=== PATIENT | female | born 1945 | race Caucasian/White ===

== ENCOUNTER → 2017-04-30 | Outpatient (CLI) | payer MEDICARE, OTHER ==
--- NOTE | 2017-05-01 09:12 | PE ---
EXAMINATION TYPE: PET CT fusion skull to thigh DATE OF EXAM: 04/30/2017 COMPARISON: Chest x-ray 04/18/2017 Prior PET/CT: None HISTORY: Solitary pulmonary nodule TECHNIQUE: Following the intravenous administration of 8.9 mCi of F-18 FDG, whole body images are pe rformed from the skull base to the midthigh. Images are reviewed on the computer in the coronal, axi al, and sagittal planes. Reconstructed rotating images are created on independent workstation and re viewed on the computer. A localization and attenuation correction CT is performed in conjunction wi th the PET scan. DLP: 195.42 mGycm SCAN: Initial Blood glucose: 79 mg/dL Average Mediastinum SUV: 1.87 Average Liver SUV: 2.5 FINDINGS: NECK: No abnormal uptake THORAX: There is mild uptake along soft tissue thickening adjacent to the pericardial border along th e right heart border. PET image 97. This has an SUV value of 2.67 and can be within the neoplastic ra nge. Inflammatory changes could be considered. There is mild uptake in the region of the soft tissue density in the posterior lateral right lower lo be. This has an SUV value 1.45 is likely inflammatory. The nodular density within the left upper lung field has an SUV value of 0.48 may be an old granuloma . PET image 67. ABDOMEN: Liver is somewhat heterogenous difficult to evaluate. Obvious focal nodules are not identifi ed. PELVIS: No abnormal uptake. OSSEOUS STRUCTURES: No abnormal uptake LOCALIZATION CT: Some mucosal thickening is through the right maxillary sinus. The ascending thoracic aorta at the level the main pulmonary artery is 3.4 cm. The main pulmonary artery at the bifurcation is 2.6 cm. Coronary artery calcifications present. There is an area of increased density within the posterior lateral right lower lung field measuring a pproximately 1.4 x 4.1 cm in size. The area of increased density along the mediastinal border on lung windows appears to measure 2.9 x 1.6 cm in size. Pneumonitis changes within the left perihilar regio n. Nodule left upper lobe measuring 0.8 cm. Emphysematous changes are within the lung tomlinson. Left re nal superior pole cysts are present. Left hip prosthesis is present causing beam hardening artifact. COMPARISON: CT findings correspond to the chest x-ray findings. IMPRESSION: 1. Small focal area of increased uptake along the right mediastinal border pericardial border has inc reased SUV uptake of 2.67. Small focus of neoplastic process could be present at this level. This pot entially could be inflammatory. 2. The larger density identified at the right base on chest x-ray and CT findings has more intermedia te signal area is more likely inflammatory in nature. Low metabolic neoplastic process cannot be excl uded. 3. Nodule within the left upper lobe likely benign with a low SUV value.
== END ==
LOC: RADPETMAIN 09:43
PROVIDERS: ATTEND Internal Medicine Critical Care Medicine
DX: R91.1 Solitary pulmonary nodule (principal)
CPT/HCPCS: 78815; A9552

== ENCOUNTER → 2017-07-11 | Outpatient (CLI) | payer MEDICARE, OTHER ==
[2017-07-11 12:19] LABS: Blood Urea Nitrogen 13 mg/dL (7-17); Non-African American GFR(MDRD) >60 (>60 ml/min/1.73 sqM)
--- NOTE | 2017-07-11 13:31 | CT ---
EXAMINATION TYPE: CT chest w con DATE OF EXAM: 07/11/2017 COMPARISON: NONE HISTORY: Patient has no complaints at time of service. Follow up study for known lung mass. CT DLP: 155.3 mGycm Automated exposure control for dose reduction was used. CONTRAST: CT scan of the chest is performed with IV Contrast, patient injected with 100 mL of Omnipaque 300. FINDINGS: LUNGS: There are emphysematous changes within the lungs. Bandlike area of increased attenuation with associated air bronchograms present along the major fissure in the right upper lobe. Some interstitia l changes are present more inferiorly. No pleural or pericardial effusion. There is an indeterminate pulmonary nodule left upper lobe axial image 19 measuring 8 mm with some questionable internal calcif ication. This is a stable finding. MEDIASTINUM: There are no greater than 1 cm hilar or mediastinal l ymph nodes. There are coronary artery calcifications present. No pericardial effusion is seen. AORTA: No additional significant abnormality is seen. OTHER: Bilateral renal cysts are present. The liver shows low attenuation. IMPRESSION: Findings could possibly represent a pneumonia, correlate. Follow-up suggested. Possible granuloma left upper lobe.
== END | disposition home or self-care (01) ==
LOC: RADCTMAIN 11:41
PROVIDERS: ATTEND Internal Medicine Critical Care Medicine
DX: R91.8 Other nonspecific abnormal finding of lung field (principal)
CPT/HCPCS: 82565; 84520; 71260; 36415; Q9967

== ENCOUNTER → 2017-11-19 | Outpatient (CLI) | payer MEDICARE, OTHER | END | disposition home or self-care (01) | LOC: RADPETMAIN 11:15 | PROVIDERS: ATTEND Internal Medicine Critical Care Medicine ==

== ENCOUNTER → 2017-11-26 | Outpatient (CLI) | payer MEDICARE, OTHER ==
--- NOTE | 2017-11-26 19:33 | PE ---
EXAMINATION TYPE: PET CT fusion skull to thigh DATE OF EXAM: 11/26/2017 COMPARISON: Prior PET/CT April 30, 2017. CT chest July 11, 2017. HISTORY: Solitary pulmonary nodule TECHNIQUE: Following the intravenous administration of 13.75 mCi of F-18 FDG, whole body images are performed from the skull base to the midthigh. Images are reviewed on the computer in the coronal, a xial, and sagittal planes. Reconstructed rotating images are created on independent workstation and reviewed on the computer. A noncontrast CT is performed in conjunction with the PET scan. SCAN: Initial Scan ? (no treatment) FINDINGS: SKULL BASE AND NECK: No suspicious hypermetabolic uptake is seen. CHEST, MEDIASTINUM, AND HILAR REGION: No suspicious hypermetabolic uptake is seen. There is interval improvement but not complete resolution of masslike consolidation posterior aspect right upper lobe n ear axial image 77 without suspicious hypermetabolic uptake. There is stable hyperdense possibly calc ified 7 mm nodule left upper lobe axial image 71 without hypermetabolic uptake. There is stable right pericardial masslike consolidation measuring 2.0 x 1.2 cm axial image 99 without hypermetabolic upta ke. There are calcified right hilar lymph nodes redemonstrated. ABDOMEN AND PELVIS: No suspicious hypermetabolic uptake is seen. OSSEOUS STRUCTURES: No suspicious hypermetabolic uptake is seen. OTHER CT: There is moderate calcified plaque left carotid bulb and mild calcified plaque right caroti d bulb redemonstrated. There is background moderate emphysematous change with scattered areas of scarring and/or atelectasis . There is coronary artery calcification which is noted marker for coronary artery disease redemonstrat ed. There are several simple appearing cysts scattered throughout both kidneys. There is 4 mm nonobstruct ing calculus upper to mid pole level right kidney axial image 122. Metallic hardware from left hip arthroplasty is seen causing streak artifact limiting evaluation of p elvic structures. There is moderate to advanced joint space loss right hip. Osseous structures are de mineralized. There is facet arthropathy lower lumbar levels. There are prominent uncovertebral facet degenerative changes in the cervical spine. There is degenerative change in both shoulders. IMPRESSION: No progression of lung findings or new hypermetabolic uptake to suggest malignancy. Findi ngs favored postinflammatory in etiology.
== END | disposition home or self-care (01) ==
LOC: RADPETMAIN 09:49
PROVIDERS: ATTEND Internal Medicine Critical Care Medicine
DX: R91.1 Solitary pulmonary nodule (principal)
CPT/HCPCS: 78815; A9552

== ENCOUNTER → 2018-07-11 | Outpatient (CLI) | payer MEDICARE, OTHER ==
--- NOTE | 2018-07-11 11:01 | XR ---
EXAMINATION TYPE: XR chest 2V DATE OF EXAM: 07/11/2018 COMPARISON: Prior chest x-ray 07/28/2017 and nuclear medicine PET/CT 11/26/2017 HISTORY: COPD and shortness of breath TECHNIQUE: Frontal and lateral views of the chest are obtained. FINDINGS: Findings are similar to prior. There are areas of scarring, right middle lobe consolidatio n. Hyperinflation is compatible with underlying emphysema. No evident pneumothorax or pleural effusio n. Blunting the costophrenic angles is stable, probable pleural reaction at the right costophrenic an gle. Cardiomediastinal silhouette, pulmonary vascularity and mikhail are stable. The could be underlying pulmonary artery hypertension. Remodeling of the left humeral head is stable. Facet arthropathy mondragon ges are extensive in the cervical spine. IMPRESSION: Stable abnormal findings. Emphysema with scarring suspected..
== END | disposition home or self-care (01) ==
LOC: RADXRYALE 09:48
PROVIDERS: ATTEND Internal Medicine Critical Care Medicine
DX: R91.8 Other nonspecific abnormal finding of lung field (principal); J44.1 Chronic obstructive pulmonary disease with (acute) exacerbation
CPT/HCPCS: 71046

== ENCOUNTER 2018-07-26 21:16 | Emergency (ER) | payer MEDICARE, OTHER ==
[2018-07-26 21:32] VITALS: BP 109/49; PULSE 84; RESP 18; TEMP 98.3
[2018-07-26] MEDS ORDERED: TOPICAL SKIN ADHESIVE 1 EACH AMP TOPICAL ONE (22:09)
--- NOTE | 2018-07-26 22:11 | ED ---
Wound/Laceration HPI - General Source: patient Mode of arrival: wheelchair Limitations: no limitations <Lisa Tay - Last Filed: 07/27/18 04:37> <Sia Ricardo - Last Filed: 07/27/18 07:43> - General Chief Complaint: Wound/Laceration Stated Complaint: Leg laceration Time Seen by Provider: 07/26/18 21:47 - History of Present Illness Initial Comments: 72-year-old female patient presents to the emergency department today for evaluation of laceration to the left lower leg. Patient states she was sitting on the couch on a tennis ball for her dog, states that the dog came up and jumped up on her scratching her legs. She states that she did sustain a skin tear to the left lower leg. states that he did irrigate the wound and applied antibiotic ointment. Patient denies falling down or any other injuries. States that she did have a tetanus vaccine 2 months ago. Patient denies any headache, neck pain, back pain, chest pain, shortness of breath, dizziness, weakness, abdominal pain, nausea, vomiting, or difficulties with bowel movements or urination. (Lisa Tay) - Related Data Allergies Allergy/AdvReac Type Severity Reaction Status Date / Time acetaminophen Allergy Unknown Verified 07/26/18 21:35 [From Darvocet-N] alendronate sodium Allergy Unknown Verified 07/26/18 21:35 [From Fosamax] aspirin Allergy Unknown Verified 07/26/18 21:35 banana Allergy Unknown Verified 07/26/18 21:35 codeine Allergy Unknown Verified 07/26/18 21:35 erythromycin base Allergy Unknown Verified 07/26/18 21:35 hydrocodone Allergy Unknown Verified 07/26/18 21:35 hyoscyamine [From Levbid] Allergy Unknown Verified 07/26/18 21:35 latex Allergy Unknown Verified 07/26/18 21:35 milk Allergy Unknown Verified 07/26/18 21:35 nitrofurantoin Allergy Unknown Verified 07/26/18 21:35 [From Macrobid] piperacillin [From Zosyn] Allergy Unknown Verified 07/26/18 21:35 propoxyphene Allergy Unknown Verified 07/26/18 21:35 [From Darvocet-N] tazobactam [From Zosyn] Allergy Unknown Verified 07/26/18 21:35 tetanus immune globulin Allergy Unknown Verified 07/26/18 21:35 venlafaxine [From Effexor] Allergy Unknown Verified 07/26/18 21:35 milk protein Allergy Unknown Uncoded 07/26/18 21:35 Review of Systems ROS Other: All systems not noted in ROS Statement are negative. <Lisa Tay - Last Filed: 07/27/18 04:37> ROS Other: All systems not noted in ROS Statement are negative. <Sia Ricardo - Last Filed: 07/27/18 07:43> ROS Statement: Those systems with pertinent positive or pertinent negative responses have been documented in the HPI. Past Medical History Past Medical History: COPD, GERD/Reflux, Hyperlipidemia Additional Past Medical History / Comment(s): emphasyma, lupus, arthritis, bursisit, ocular hypertension, carpel tunnel, steroid induced diabetes, shingles , incontinence, angio neurotic edema History of Any Multi-Drug Resistant Organisms: None Reported Past Surgical History: Hysterectomy, Orthopedic Surgery, Tonsillectomy Past Psychological History: No Psychological Hx Reported Smoking Status: Former smoker Past Alcohol Use History: None Reported Past Drug Use History: None Reported <Lisa Tay - Last Filed: 07/27/18 04:37> General Exam Limitations: no limitations General appearance: alert, in no apparent distress, other (This is a well- developed, well-nourished elderly female patient in no acute distress. Vital signs upon presentation are temperature 98.3F, pulse 84, respirations 18, blood pressure 109/49, pulse ox 92% on room air.) Eye exam: Present: normal appearance, PERRL, EOMI. Absent: scleral icterus, conjunctival injection, periorbital swelling ENT exam: Present: normal exam, normal oropharynx, mucous membranes moist Respiratory exam: Present: normal lung sounds bilaterally. Absent: respiratory distress, wheezes, rales, rhonchi, stridor Cardiovascular Exam: Present: regular rate, normal rhythm, normal heart sounds. Absent: systolic murmur, diastolic murmur, rubs, gallop, clicks Extremities exam: Present: full ROM, normal capillary refill, other (Patient has stellate shaped skin tear to the left galeas. Bleeding is controlled. Skin is very thin and fragile.). Absent: normal inspection, tenderness, pedal edema , joint swelling, calf tenderness Neurological exam: Present: alert, oriented X3, CN II-XII intact Psychiatric exam: Present: normal affect, normal mood Skin exam: Present: warm, dry, intact, normal color. Absent: rash <Lisa Tay - Last Filed: 07/27/18 04:37> Vital Signs 07/26/18 21:25 Temperature 98.3 F Pulse Rate 84 Respiratory 18 Rate Blood Pressure 109/49 O2 Sat by Pulse 92 L Oximetry Medical Decision Making <Lisa Tay - Last Filed: 07/27/18 04:37> <Sia Ricardo - Last Filed: 07/27/18 07:43> - Medical Decision Making 72-year-old female patient presented to the emergency department today for evaluation of skin tear to the left galeas. Physical examination did reveal a stellate, flap -like skin tear to the left galeas. I did cleanse the skin tear. Did repair using Steri-Strips and accident. Patient is instructed to leave the Steri-Strips in place until follow-up. She is instructed to monitor for signs or symptoms of infection. Tetanus is up-to-date. She'll be discharged home to follow-up with her primary care physician for reevaluation of the wound and wanted to days. Return parameters were discussed in detail. They verbalize understanding and agree with this plan. (Lisa Tay) I personally saw and examined the patient. I reviewed and agree with the mid- level provider findings including all diagnostic interpretations and treatment plans as written unless otherwise stated. I was present for wilson portions of any procedures performed. (Sia Ricardo) Disposition Is patient prescribed a controlled substance at d/c from ED?: No Time of Disposition: 23:15 <Lisa Tay - Last Filed: 07/27/18 04:37> <Sia Ricardo - Last Filed: 07/27/18 07:43> Clinical Impression: Skin tear of left lower leg without complication Disposition: HOME SELF-CARE Condition: Good Instructions: Skin Tear (ED) Additional Instructions: Keep wound clean and dry. Allow Steri-Strips to follow-up on her own. Follow- up with your primary care physician for recheck of the wound in 1-2 days. Return here immediately for any new, worsening, or concerning symptoms. Referrals: Henrietta Hyatt MD [Primary Care Provider] - 1-2 days
== END 2018-07-26 23:25 | disposition home or self-care (01) ==
LOC: EC 21:16
DX: S81.812A Laceration without foreign body, left lower leg, initial encounter (principal); Z87.891 Personal history of nicotine dependence; Z88.6 Allergy status to analgesic agent; Z88.5 Allergy status to narcotic agent; Z88.1 Allergy status to other antibiotic agents; Z91.011 Allergy to milk products; Z91.040 Latex allergy status; Z88.7 Allergy status to serum and vaccine; Z88.8 Allergy status to other drugs, medicaments and biological substances; X58.XXXA Exposure to other specified factors, initial encounter; Y92.009 Unspecified place in unspecified non-institutional (private) residence as the place of occurrence of the external cause
CPT/HCPCS: 99282

== ENCOUNTER → 2019-09-17 | Outpatient (CLI) | payer MEDICARE, OTHER | END | disposition home or self-care (01) | LOC: CPPFTMAIN 11:16 | PROVIDERS: ATTEND Internal Medicine Critical Care Medicine | DX: J44.9 Chronic obstructive pulmonary disease, unspecified (principal); R94.2 Abnormal results of pulmonary function studies | CPT/HCPCS: 94060; 94726; 94729 ==

== ENCOUNTER → 2020-05-10 | Outpatient (CLI) | payer MEDICARE, OTHER ==
--- NOTE | 2020-05-10 14:05 | CT ---
EXAMINATION TYPE: CT pelvis wo con DATE OF EXAM: 05/10/2020 COMPARISON: None HISTORY: Low back and bilateral hip pain. Possible S3 fracture. CT DLP: 474.2 mGycm Automated exposure control for dose reduction was used. Unenhanced CT of the pelvis was performed. FINDINGS: Vague areas of sclerosis and lucency involving the sacrum bilaterally felt to reflect bilateral sacra l insufficiency fractures. No bony destructive process seen. Vacuum changes of the SI joints right gr eater than left. No evidence for presacral mass. Left hip prosthesis. Atrophic changes of the uterus. Focal uterine calcification. IMPRESSION: SACRAL INSUFFICIENCY FRACTURES NOTED.
== END | disposition home or self-care (01) ==
LOC: RADCTMAIN 12:09
PROVIDERS: ATTEND Physical Medicine & Rehabilitation
DX: S32.10XA Unspecified fracture of sacrum, initial encounter for closed fracture (principal); M47.817 Spondylosis without myelopathy or radiculopathy, lumbosacral region; M43.17 Spondylolisthesis, lumbosacral region; M51.36 Other intervertebral disc degeneration, lumbar region; M46.1 Sacroiliitis, not elsewhere classified
CPT/HCPCS: 72192

== ENCOUNTER → 2020-07-15 | Outpatient (CLI) | payer MEDICARE, OTHER ==
--- NOTE | 2020-07-15 15:08 | XR ---
PA chest x-ray with left RIBS HISTORY: Left rib pain, trauma Frontal view of the chest and 4 views of the left ribs submitted Marked arthropathy noted in the left shoulder. Aorta is dense. There are prominent lung volume suggesting underlying COPD. Bandlike area of increased attenuation in the left midlung likely reflects scarring as noted on prior. There is a contour abnormality present at the eighth rib laterally on the left, difficult to exclude a nondisplaced fracture. Ninth rib show s a small minimally displaced fracture on the oblique image. There is no pneumothorax or pleural effu tristen. Lucency beneath the hemidiaphragms thought likely related to bowel. IMPRESSION: Ninth rib fracture. Difficult to exclude nondisplaced eighth rib fracture. Bone scan coul d be performed for increased sensitivity as indicated.
== END | disposition home or self-care (01) ==
LOC: RADXRYALE 12:06
PROVIDERS: ATTEND Internal Medicine
DX: S22.32XA Fracture of one rib, left side, initial encounter for closed fracture (principal)

== ENCOUNTER 2020-07-18 13:20 | Inpatient (IN) | payer MEDICARE, OTHER ==
--- NOTE | 2020-07-18 14:08 | ED ---
Fall HPI - General Source: patient, family, EMS Mode of arrival: EMS <Shana Omalley - Last Filed: 07/18/20 18:22> <Robert Marie - Last Filed: 07/18/20 18:57> - General Chief Complaint: Fall Stated Complaint: Fall Time Seen by Provider: 07/18/20 13:42 - History of Present Illness Initial Comments: Patient is a 74-year-old female, with history of COPD on 2 L at home, presenting to the emergency department via EMS after having a fall. Patient states she was laying in bed and needed to use the restroom so she positioned her walker a gainst her dresser but then when she stood up she fell to the left. Patient states she did not hit her head, she did not lose consciousness. Patient states she had to lay there for approximately one hour until her came back home from the store. Patient's daughter is with here now and states that over the past few weeks she has had a few different falls. She is currently recovering from a nondisplaced left rib fracture as well as a sacral fracture from previous falls. She is currently on Bactrim, awaiting a urine culture for possible UTI. Patient's daughter states they do believe she might have mild dementia over the falls are new. She normally walks with a walker. She does admit to history of left hip surgery. She did admit to left hip pain right after the fall but states she is no longer having pain in her left ear. She denies any abdominal pain, nausea or vomiting. She denies any chest pains but does admit to left- sided rib pain. He denies any head or neck pain. She has no further complaints at this time. Upon arrival to the ER, vital signs are stable. (Shana Omalley) - Related Data Home Medications Medication Instructions Recorded Confirmed Acamprosate Calcium [Campral] 333 mg PO BID 07/18/20 07/18/20 Acetaminophen Tab [Tylenol] 325 mg PO Q6H PRN 07/18/20 07/18/20 Alendronate Sodium [Fosamax] 70 mg PO TH 07/18/20 07/18/20 Aspirin EC [Ecotrin Low Dose] 81 mg PO HS 07/18/20 07/18/20 Azelastine HCl 137 mcg EA NOSTRIL Q12H 07/18/20 07/18/20 Benzonatate [Tessalon Perles] 100 mg PO TID PRN 07/18/20 07/18/20 Calcitrate 950mg 950 mg PO HS 07/18/20 07/18/20 Cetirizine HCl 10 mg PO HS PRN 07/18/20 07/18/20 Desloratadine 5 mg PO DAILY PRN 07/18/20 07/18/20 Fexofenadine HCl [Jody Allergy] 180 mg PO DAILY PRN 07/18/20 07/18/20 Fluticasone/Salmeterol [Advair 1 puff INHALATION RT-BID 07/18/20 07/18/20 500-50 Diskus] Ipratropium-Albuterol Nebulize 3 ml INHALATION RT-QID PRN 07/18/20 07/18/20 [Duoneb 0.5 mg-3 mg/3 ml Soln] Levocetirizine Dihydrochloride 5 mg PO DAILY PRN 07/18/20 07/18/20 [Xyzal] Levothyroxine Sodium 25 mcg PO DAILY 07/18/20 07/18/20 Loperamide HCl [Imodium A-D] 4 mg PO TID PRN 07/18/20 07/18/20 Magnesium 450 - 500 mg PO HS PRN 07/18/20 07/18/20 Montelukast Sodium [Singulair] 10 mg PO HS 07/18/20 07/18/20 Multivit-Min/Iron/Folic/Lutein 1 tab PO HS 07/18/20 07/18/20 [Centrum Silver Women Tablet] [employer]-3 Fatty Acids [[employer]-3] 1,000 mg PO DAILY 07/18/20 07/18/20 Omeprazole 20 mg PO HS 07/18/20 07/18/20 Oxybutynin Chloride [Oxybutynin 10 mg PO HS 07/18/20 07/18/20 Chloride ER] Primidone [Mysoline] 250 mg PO TID@0900,1300,1700 07/18/20 07/18/20 Psyllium Husk 100% [Metamucil 6 gm PO TID PRN 07/18/20 07/18/20 Packet] Simvastatin [Zocor] 40 mg PO HS 07/18/20 07/18/20 Tiotropium 18 Mcg/Puff [Spiriva] 1 puff INHALATION RT-DAILY 07/18/20 07/18/20 clonazePAM [KlonoPIN] 0.5 mg PO BID 07/18/20 07/18/20 guaiFENesin [Mucinex] 600 mg PO BID PRN 07/18/20 07/18/20 traMADol HCL 50 mg PO BID 07/18/20 07/18/20 Allergies Allergy/AdvReac Type Severity Reaction Status Date / Time hyoscyamine [From Levbid] Allergy Severe Unknown Verified 07/18/20 17:35 acetaminophen Allergy Unknown Verified 07/18/20 17:09 [From Darvocet-N] alendronate sodium Allergy Rash & Verified 07/18/20 17:35 [From Fosamax] Hives from Generic =brand ok= aspirin Allergy High doses Verified 07/18/20 17:35 causes cramps and stomach tearing banana Allergy Unknown Verified 07/18/20 17:09 codeine Allergy Unknown Verified 07/18/20 17:09 erythromycin base Allergy Unknown Verified 07/18/20 17:09 hydrocodone Allergy Unknown Verified 07/18/20 17:09 latex Allergy Rash/Hives Verified 07/18/20 17:35 milk Allergy Unknown Verified 07/18/20 17:09 nitrofurantoin Allergy 'SCARRING Verified 07/18/20 17:35 [From Macrobid] IN LUNGS' piperacillin [From Zosyn] Allergy Unknown Verified 07/18/20 17:09 propoxyphene Allergy Unknown Verified 07/18/20 17:09 [From Darvocet-N] tazobactam [From Zosyn] Allergy Unknown Verified 07/18/20 17:09 tetanus immune globulin Allergy Swelling Verified 07/18/20 17:35 venlafaxine [From Effexor] Allergy Unknown Verified 07/18/20 17:09 milk protein Allergy Unknown Uncoded 07/18/20 17:09 Review of Systems ROS Other: All systems not noted in ROS Statement are negative. <Shana Omalley - Last Filed: 07/18/20 18:22> ROS Other: All systems not noted in ROS Statement are negative. <Robert Marie - Last Filed: 07/18/20 18:57> ROS Statement: Those systems with pertinent positive or pertinent negative responses have been documented in the HPI. Past Medical History Past Medical History: COPD, GERD/Reflux, Hyperlipidemia Additional Past Medical History / Comment(s): emphasyma, lupus, arthritis, bursisit, ocular hypertension, carpel tunnel, steroid induced diabetes, shingles, incontinence, angio neurotic edema History of Any Multi-Drug Resistant Organisms: None Reported Past Surgical History: Hysterectomy, Orthopedic Surgery, Tonsillectomy Past Psychological History: No Psychological Hx Reported Smoking Status: Former smoker Past Alcohol Use History: None Reported Past Drug Use History: None Reported <Shana Omalley - Last Filed: 07/18/20 18:22> General Exam Limitations: no limitations <Shana Omalley - Last Filed: 07/18/20 18:22> - General Exam Comments Initial Comments: GENERAL: Patient is well-developed and well-nourished. Patient is nontoxic and in no a cute distress. HEAD: Atraumatic, normocephalic. EYES: Pupils equal round and reactive to light, extraocular movements intact, sclera anicteric, conjunctiva are normal. Eyelids were unremarkable. ENT: TMs normal, nares patent, oropharynx clear without exudates. Moist mucous membranes. NECK: Patient did arrive in c-collar, after c-collar was cleared, normal cervical range of motion, no midline tenderness. Supple without lymphadenopathy or JVD. LUNGS: Unlabored respirations. Breath sounds clear to auscultation bilaterally and equal. No wheezes rales or rhonchi. Mild pain with palpation of the left ribs. HEART: Regular rate and rhythm without murmurs, rubs or gallops. ABDOMEN: Soft, nontender, normoactive bowel sounds. No guarding, no rebound. No masses appreciated. : Deferred MUSCULOSKELETAL: Patient does have decreased range of motion of the left upper extremity, pain with arm flexion. Normal extremities with adequate strength and normal range of motion, no pitting or edema. No clubbing or cyanosis. NEUROLOGICAL: Patient is alert and oriented x 3. Motor and sensory are also intact. Cranial nerves II through XII grossly intact. Symmetrical smile. Normal speech, normal gait. PSYCH: Normal mood, normal affect. SKIN: Warm, Dry, normal turgor, no rashes or lesions noted. (Shana Omalley) Course <Robert Marie - Last Filed: 07/18/20 18:57> Vital Signs 07/18/20 07/18/20 07/18/20 13:52 14:58 15:58 Temperature 96.7 F L Pulse Rate 77 80 80 Respiratory 17 18 18 Rate Blood Pressure 136/64 130/59 O2 Sat by Pulse 99 95 95 Oximetry 07/18/20 07/18/20 16:58 17:58 Temperature Pulse Rate 83 78 Respiratory 18 18 Rate Blood Pressure 123/55 O2 Sat by Pulse 95 95 Oximetry - Reevaluation(s) Reevaluation #1: 07/18/20 18:56 PA supervision: I proceeded [id number] evaluation the patient. Patient did have evidence of frequent falls and failure to thrive. She did have rib fractures on the left. I did discuss the case with Dr. Coreas. Patient be admitted to Dr. Garcia with Dr. Coreas on consult. I did review the CAT scan and report. (Robert Marie) Medical Decision Making - Lab Data Result diagrams: 07/18/20 14:09 07/18/20 14:09 <Shana Omalley - Last Filed: 07/18/20 18:22> - Lab Data Result diagrams: 07/18/20 14:09 07/18/20 14:09 <Robert Marie - Last Filed: 07/18/20 18:57> - Medical Decision Making Patient is a 74-year-old female presenting via EMS from her home after she fell earlier today. Patient's daughters here with her now states she has been having multiple falls over the past few weeks. The most recent one was 2 days ago and she does have a small ninth rib fracture. Patient denies losing consciousness or hitting her head. She fell mostly on her left side. She did arrive in a c- collar but denies any neck pain or headache. She is not on blood thinners. Computed tomography scan of the brain and C-spine showed no acute process. C- collar was removed, and full range of motion without pain. X-rays of the left side of the ribs as well as chest x-ray reveal displaced third, fourth, fifth rib fractures as well as seventh eighth and ninth. No pneumothorax seen at this time. Lab work also reveals a mild white count at 13.4,, urine did come back positive for nitrates, many WBC clumps. Patient was given some fluids, pain control. She has been resting comfortably in the ER. Patient will be admitted for multiple rib fractures and multiple falls. She also be treated for UTI. Patient will be given 2 g of Rocephin. Patient was accepted by Dr. Morataya. Dr. Medeiros is also on consult. Case discussed with Dr. Marie. (Shana Omalley) - Lab Data Lab Results 07/18/20 07/18/20 07/18/20 Range/Units 14:09 14:09 14:09 WBC 13.4 H (3.8-10.6) k/uL RBC 4.23 (3.80-5.40) m/uL Hgb 12.8 (11.4-16.0) gm/dL Hct 39.9 (34.0-46.0) % MCV 94.3 (80.0-100.0) fL MCH 30.3 (25.0-35.0) pg MCHC 32.2 (31.0-37.0) g/dL RDW 14.1 (11.5-15.5) % Plt Count 252 (150-450) k/uL Neutrophils % 89 % Lymphocytes % 5 % Monocytes % 3 % Eosinophils % 1 % Basophils % 0 % Neutrophils # 12.0 H (1.3-7.7) k/uL Lymphocytes # 0.7 L (1.0-4.8) k/uL Monocytes # 0.4 (0-1.0) k/uL Eosinophils # 0.2 (0-0.7) k/uL Basophils # 0.1 (0-0.2) k/uL PT 9.6 (9.0-12.0) sec INR 0.9 (<1.2) APTT 24.3 (22.0-30.0) sec Sodium 135 L (137-145) mmol/L Potassium 4.6 (3.5-5.1) mmol/L Chloride 99 (98-107) mmol/L Carbon Dioxide 31 H (22-30) mmol/L Anion Gap 5 mmol/L BUN 14 (7-17) mg/dL Creatinine 0.72 (0.52-1.04) mg/dL Est GFR (CKD-EPI)AfAm >90 (>60 ml/min/1.73 sqM) Est GFR (CKD-EPI)NonAf 85 (>60 ml/min/1.73 sqM) Glucose 178 H (74-99) mg/dL Calcium 8.5 (8.4-10.2) mg/dL Total Bilirubin 0.2 (0.2-1.3) mg/dL AST 26 (14-36) U/L ALT 13 (4-34) U/L Alkaline Phosphatase 127 H (38-126) U/L Total Protein 6.7 (6.3-8.2) g/dL Albumin 3.6 (3.5-5.0) g/dL Urine Color Urine Appearance (Clear) Urine pH (5.0-8.0) Ur Specific Floyd (1.001-1.035) Urine Protein (Negative) Urine Glucose (UA) (Negative) Urine Ketones (Negative) Urine Blood (Negative) Urine Nitrite (Negative) Urine Bilirubin (Negative) Urine Urobilinogen (<2.0) mg/dL Ur Leukocyte Esterase (Negative) Urine RBC (0-5) /hpf Urine WBC (0-5) /hpf Urine WBC Clumps (None) /hpf Urine Bacteria (None) /hpf Urine Mucus (None) /hpf / Range/Units 14:09 WBC (3.8-10.6) k/uL RBC (3.80-5.40) m/uL Hgb (11.4-16.0) gm/dL Hct (34.0-46.0) % MCV (80.0-100.0) fL MCH (25.0-35.0) pg MCHC (31.0-37.0) g/dL RDW (11.5-15.5) % Plt Count (150-450) k/uL Neutrophils % % Lymphocytes % % Monocytes % % Eosinophils % % Basophils % % Neutrophils # (1.3-7.7) k/uL Lymphocytes # (1.0-4.8) k/uL Monocytes # (0-1.0) k/uL Eosinophils # (0-0.7) k/uL Basophils # (0-0.2) k/uL PT (9.0-12.0) sec INR (<1.2) APTT (22.0-30.0) sec Sodium (137-145) mmol/L Potassium (3.5-5.1) mmol/L Chloride (98-107) mmol/L Carbon Dioxide (22-30) mmol/L Anion Gap mmol/L BUN (7-17) mg/dL Creatinine (0.52-1.04) mg/dL Est GFR (CKD-EPI)AfAm (>60 ml/min/1.73 sqM) Est GFR (CKD-EPI)NonAf (>60 ml/min/1.73 sqM) Glucose (74-99) mg/dL Calcium (8.4-10.2) mg/dL Total Bilirubin (0.2-1.3) mg/dL AST (14-36) U/L ALT (4-34) U/L Alkaline Phosphatase (38-126) U/L Total Protein (6.3-8.2) g/dL Albumin (3.5-5.0) g/dL Urine Color Yellow Urine Appearance Cloudy H (Clear) Urine pH 7.0 (5.0-8.0) Ur Specific Floyd 1.014 (1.001-1.035) Urine Protein Negative (Negative) Urine Glucose (UA) Negative (Negative) Urine Ketones Negative (Negative) Urine Blood Negative (Negative) Urine Nitrite Positive H (Negative) Urine Bilirubin Negative (Negative) Urine Urobilinogen <2.0 (<2.0) mg/dL Ur Leukocyte Esterase Large H (Negative) Urine RBC 2 (0-5) /hpf Urine WBC 126 H (0-5) /hpf Urine WBC Clumps Few H (None) /hpf Urine Bacteria Occasional H (None) /hpf Urine Mucus Rare H (None) /hpf - EKG Data EKG Comments: Normal sinus rhythm, normal ECG, no signs of acute ischemia. Ventricular rate 72, NJ 142, QT 398. (Shana Omalley) Disposition Decision Date: 07/18/20 Decision Time: 18:10 <Shana Omalley - Last Filed: 07/18/20 18:22> <Robert Marie - Last Filed: 07/18/20 18:57> Clinical Impression: Multiple falls, Multiple fractures of ribs of left side, UTI (urinary tract infection) Disposition: ADMITTED IP TO THIS [facility] Condition: Stable
[2020-07-18 14:19] LABS: Basophils # (A) 0.1 k/uL (0-0.2); Basophils % (A) 0 %; Eosinophils # (A) 0.2 k/uL (0-0.7); Eosinophils % (A) 1 %; HCT 39.9 % (34.0-46.0); HGB 12.8 gm/dL (11.4-16.0); Lymphocytes # (A) 0.7 k/uL (1.0-4.8); Lymphocytes % (A) 5 %; MCH 30.3 pg (25.0-35.0); MCHC 32.2 g/dL (31.0-37.0); MCV 94.3 fL (80.0-100.0); Mean Platelet Volume 7.6; Monocytes # (A) 0.4 k/uL (0-1.0); Monocytes % (A) 3 %; Neutrophils % (A) 89 %; Platelet Count 252 k/uL (150-450); RBC 4.23 m/uL (3.80-5.40); RDW 14.1 % (11.5-15.5); WBC 13.4 k/uL (3.8-10.6)
[2020-07-18 14:34] LABS: ALT 13 U/L (4-34); AST 26 U/L (14-36); African American GFR (CKD) >90 (>60 ml/min/1.73 sqM); Albumin 3.6 g/dL (3.5-5.0); Alkaline Phosphatase 127 U/L (38-126); Anion Gap 5 mmol/L; Blood Urea Nitrogen 14 mg/dL (7-17); Calcium 8.5 mg/dL (8.4-10.2); Carbon Dioxide 31 mmol/L (22-30); Chloride 99 mmol/L (98-107); Glucose 178 mg/dL (74-99); Non-African American GFR(CKD) 85 (>60 ml/min/1.73 sqM); Potassium 4.6 mmol/L (3.5-5.1); Sodium 135 mmol/L (137-145); Total Bilirubin 0.2 mg/dL (0.2-1.3); Total Protein 6.7 g/dL (6.3-8.2)
[2020-07-18 14:41] LABS: INR 0.9 (<1.2); Partial Thromboplastin Time 24.3 sec (22.0-30.0); Prothrombin Time 9.6 sec (9.0-12.0)
--- NOTE | 2020-07-18 14:47 | CT ---
EXAMINATION TYPE: CT brain cspine wo con DATE OF EXAM: 07/18/2020 COMPARISON: None HISTORY: Fall CT DLP: 1254.1 mGycm Automated exposure control for dose reduction was used. TECHNIQUE: CT scan of the head and cervical spine are performed without contrast. FINDINGS: There is no acute intracranial hemorrhage, mass effect, or midline shift identified. No e xtra-axial fluid collections. Prominent ventricles concordant with volume loss. Patchy periventricula r white matter hypodensities likely sequela of chronic microvascular ischemic change. No depressed o r displaced calvarial fracture. Globes are grossly symmetric. There is mucosal thickening of the righ t maxillary sinus. Mastoid air cells are clear. Cervical spine is visualized in its entirety from C1 through upper thoracic levels and demonstrates s atisfactory alignment without evidence of acute fracture or dislocation. Prevertebral soft tissue ap pears within normal limits. The C1-C2 articulation is unremarkable. Degenerative changes with no hi gh-grade canal stenosis. The bilateral lung apices demonstrate severe emphysematous change with saber -sheath trachea. There is debris within the esophagus. IMPRESSION: 1. There is no acute fracture or dislocation evident in the cervical spine. 2. No acute intracranial hemorrhage, mass effect, or midline shift is seen.
[2020-07-18] MEDS ORDERED: MORPHINE SULFATE 2 MG/ML SYRINGE IVP ONE (14:50)
--- NOTE | 2020-07-18 15:54 | XR ---
Chest x-ray with left RIBS HISTORY: Trauma, history of rib fracture, pain Frontal view of the chest and 4 views of left ribs correlated to prior chest x-ray 07/15/2020 No evident pneumothorax or pleural effusion. Patchy density in the left midlung may represent lung co ntusion, underlying scarring. There is been interval development of a dominate, displaced third rib f racture laterally, fourth rib fracture and fifth rib fracture not seen on prior exam. Seventh rib lat erally also shows a fracture with angulation. Eighth and ninth rib fractures are again noted. impression: Interval development of additional fractures as described
--- NOTE | 2020-07-18 15:56 | XR ---
Left humerus HISTORY: Trauma and pain Frontal and lateral views of left humerus on 4 images Marked arthropathy changes present in the left shoulder. Bone mineralization is reduced. No evident d islocation. 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 Sclerotic density present within the humeral head is indeter minate. IMPRESSION: No evidence of acute fracture
[2020-07-18 16:23] LABS: Appearance,Urine Cloudy (Clear); Bacteria,Urine Occasional /hpf; Bilirubin,Urine Negative (Negative); Blood,Urine Negative (Negative); Color,Urine Yellow; Glucose,Urine (UA) Negative (Negative); Ketones,Urine Negative (Negative); Leukocyte Esterase,Urine Large (Negative); Mucus,Urine Rare /hpf; Nitrite,Urine Positive (Negative); Protein,Urine Negative (Negative); RBC,Urine 2 /hpf (0-5); Specific Gravity,Urine 1.014 (1.001-1.035); Urobilinogen,Urine <2.0 mg/dL (<2.0); WBC,Urine 126 /hpf (0-5)
[2020-07-18] MEDS ORDERED: SODIUM CHLORIDE 0.9% 500 ML 500 ML IV STA (16:52)
[2020-07-18] MEDS ORDERED: ONDANSETRON 4 MG/2 ML VIAL IVP PRN (18:01)
[2020-07-18] MEDS ORDERED: NALOXONE 0.4 MG/ML 1 ML VIAL IV PRN (18:01)
[2020-07-18] MEDS: MORPHINE SULFATE 2 MG/ML SYRINGE IV PRN ×2 (18:45→23:01)
[2020-07-18] MEDS: SODIUM CHLORIDE 0.9% 1,000 ML IV SCH (18:45)
[2020-07-18] MEDS: CALCIUM CARBONATE 500 MG CHEWABLE PO PRN (23:01)
[2020-07-19] MEDS: traMADol 50 MG TAB PO PRN ×4 (03:11→22:05)
[2020-07-19] MEDS: MORPHINE SULFATE 2 MG/ML SYRINGE IV PRN ×3 (06:17→17:19)
[2020-07-19 06:35] LABS: Basophils % (A) 0 %; Eosinophils # (A) 0.2 k/uL (0-0.7); Eosinophils % (A) 2 %; HCT 37.9 % (34.0-46.0); HGB 11.8 gm/dL (11.4-16.0); Lymphocytes # (A) 0.9 k/uL (1.0-4.8); Lymphocytes % (A) 10 %; MCH 29.3 pg (25.0-35.0); MCHC 31.1 g/dL (31.0-37.0); MCV 94.2 fL (80.0-100.0); Mean Platelet Volume 7.6; Monocytes # (A) 0.7 k/uL (0-1.0); Monocytes % (A) 7 %; Neutrophils # (A) 7.6 k/uL (1.3-7.7); Neutrophils % (A) 81 %; Platelet Count 258 k/uL (150-450); RBC 4.03 m/uL (3.80-5.40); RDW 14.2 % (11.5-15.5); WBC 9.5 k/uL (3.8-10.6)
[2020-07-19 09:32] LABS: African American GFR (CKD) 105.5 (60.0-200.0); Albumin 3.6 g/dL (3.80-4.90); Albumin/Globulin Ratio 1.64 (1.60-3.17); Calcium 8.7 mg/dL (8.7-10.3); Globulin 2.2 g/dL (1.6-3.3); Non-African American GFR(CKD) 91.1 (60.0-200.0); Potassium 4.6 mmol/L (3.5-5.5); Total Bilirubin 0.2 mg/dL (0.2-1.2); Total Protein 5.8 g/dL (6.2-8.2)
[2020-07-19] MEDS ORDERED: BENZONATATE 100 MG CAP PO PRN (11:10)
[2020-07-19] MEDS ORDERED: LOPERAMIDE 2 MG CAP PO PRN (11:10)
[2020-07-19] MEDS ORDERED: ACETAMINOPHEN TAB 325 MG TAB PO PRN (11:10)
[2020-07-19 11:29] VITALS: BMI 18.9
[2020-07-19] MEDS ORDERED: clonazePAM 0.5 MG TAB PO PRN (12:36)
--- NOTE | 2020-07-19 13:21 | P.CNPUL ---
History of Present Illness Consult date: 07/19/20 Reason for consult: chest pain History of present illness: 74-year-old female patient, known history of COPD with chronic hypoxic respiratory failure at 2 L per minute nasal cannula, known history of chronic essential tremors and dementia. The patient has had multiple falls. While utilizing the restroom yesterday, the patient had another bout of fall and she landed on her left chest area. She did not have any head trauma. No loss of consciousness. This is related to her tremors in overall generalized weakness and debility. The patient was on the floor for approximately an hour and she waited for her to come and pick it up as the patient's was not at home at time of the fall. She has had a chest x-ray that showed nondisplaced left-sided drip fractures involving third fourth and fifth rib. She has had previous falls and she is recovered from a nondisplaced left-sided rib fracture and the sacral fracture related to a previous fall. She recently received Bactrim for a underlying UTI. No altered mentation. No headache. No neck stiffness. No swelling lower extremities. No swelling in the legs. No other complaints otherwise for now. X-ray of the humerus was done and showed no evidence of any fracture. CAT scan of the cervical spine and the head showed no evidence of any acute fracture or dislocation of the cervical spine and the patient and I have any acute intracranial hemorrhage or mass effect or midline shift. She is currently utilizing incentive spirometer. She continues to be on 2 L of oxygen by nasal cannula. She is on morphine sulfate 2 mg every 4 hours when necessary for pain control. She is also on aspirin 81 mg by mouth daily. Review of Systems Constitutional: Reports chronic pain, Reports fatigue, Reports weakness Eyes: bilateral decreased vision, denies blurred vision, denies bulging eye Ears: bilateral: decreased hearing, deny: ear discharge, earache, tinnitus Ears, nose, mouth and throat: Reports as per HPI Breasts: absent: as per HPI, change in shape, gynecomastia, masses, nipple discharge, pain, skin changes, swelling Cardiovascular: Reports chest pain, Reports decreased exercise tolerance, Report s dyspnea on exertion Respiratory: Reports dyspnea Gastrointestinal: Reports as per HPI Genitourinary: Reports as per HPI Menstruation: Reports as per HPI Musculoskeletal: Reports fractures, Reports frequent falls, Reports gait dysfunction, Reports muscle weakness Musculoskeletal: right: ankle stiffness, absent: ankle swelling Integumentary: Reports as per HPI Neurological: Reports gait dysfunction, Reports weakness Psychiatric: Reports as per HPI Endocrine: Reports as per HPI Hematologic/Lymphatic: Reports as per HPI Allergic/Immunologic: Reports as per HPI Past Medical History Past Medical History: COPD, GERD/Reflux, Hyperlipidemia, Memory Impairment Additional Past Medical History / Comment(s): emphysema, lupus, arthritis, bursitis, ocular hypertension, carpel tunnel, steroid induced diabetes, shingles, incontinence urine and bowel, angio neurotic edema History of Any Multi-Drug Resistant Organisms: None Reported Past Surgical History: Orthopedic Surgery, Tonsillectomy Additional Past Surgical History / Comment(s): left partial hip relacement Past Anesthesia/Blood Transfusion Reactions: No Reported Reaction Past Psychological History: No Psychological Hx Reported Smoking Status: Former smoker Past Alcohol Use History: None Reported Past Drug Use History: None Reported Medications and Allergies Home Medications Medication Instructions Recorded Confirmed Type Acamprosate Calcium [Campral] 333 mg PO BID 07/18/20 07/18/20 History Acetaminophen Tab [Tylenol] 325 mg PO Q6H PRN 07/18/20 07/18/20 History Alendronate Sodium [Fosamax] 70 mg PO TH 07/18/20 07/18/20 History Aspirin EC [Ecotrin Low Dose] 81 mg PO HS 07/18/20 07/18/20 History Azelastine HCl 137 mcg EA NOSTRIL Q12H 07/18/20 07/18/20 History Benzonatate [Tessalon Perles] 100 mg PO TID PRN 07/18/20 07/18/20 History Calcitrate 950mg 950 mg PO HS 07/18/20 07/18/20 History Cetirizine HCl 10 mg PO HS PRN 07/18/20 07/18/20 History Desloratadine 5 mg PO DAILY PRN 07/18/20 07/18/20 History Fexofenadine HCl [Jody Allergy] 180 mg PO DAILY PRN 07/18/20 07/18/20 History Fluticasone/Salmeterol [Advair 1 puff INHALATION RT-BID 07/18/20 07/18/20 History 500-50 Diskus] Ipratropium-Albuterol Nebulize 3 ml INHALATION RT-QID PRN 07/18/20 07/18/20 History [Duoneb 0.5 mg-3 mg/3 ml Soln] Levocetirizine Dihydrochloride 5 mg PO DAILY PRN 07/18/20 07/18/20 History [Xyzal] Levothyroxine Sodium 25 mcg PO DAILY 07/18/20 07/18/20 History Loperamide HCl [Imodium A-D] 4 mg PO TID PRN 07/18/20 07/18/20 History Magnesium 450 - 500 mg PO HS PRN 07/18/20 07/18/20 History Montelukast Sodium [Singulair] 10 mg PO HS 07/18/20 07/18/20 History Multivit-Min/Iron/Folic/Lutein 1 tab PO HS 07/18/20 07/18/20 History [Centrum Silver Women Tablet] [place]-3 Fatty Acids [[place]-3] 1,000 mg PO DAILY 07/18/20 07/18/20 History Omeprazole 20 mg PO HS 07/18/20 07/18/20 History Oxybutynin Chloride [Oxybutynin 10 mg PO HS 07/18/20 07/18/20 History Chloride ER] Primidone [Mysoline] 250 mg PO TID@0900,1300,1700 07/18/20 07/18/20 History Psyllium Husk 100% [Metamucil 6 gm PO TID PRN 07/18/20 07/18/20 History Packet] Simvastatin [Zocor] 40 mg PO HS 07/18/20 07/18/20 History Tiotropium 18 Mcg/Puff [Spiriva] 1 puff INHALATION RT-DAILY 07/18/20 07/18/20 H istory clonazePAM [KlonoPIN] 0.5 mg PO BID 07/18/20 07/18/20 History guaiFENesin [Mucinex] 600 mg PO BID PRN 07/18/20 07/18/20 History traMADol HCL 50 mg PO BID 07/18/20 07/18/20 History Allergies Allergy/AdvReac Type Severity Reaction Status Date / Time hyoscyamine [From Levbid] Allergy Severe Unknown Verified 07/18/20 17:35 acetaminophen Allergy Unknown Verified 07/18/20 17:09 [From Darvocet-N] alendronate sodium Allergy Rash & Verified 07/18/20 17:35 [From Fosamax] Hives from Generic =brand ok= aspirin Allergy High doses Verified 07/18/20 17:35 causes cramps and stomach tearing banana Allergy Unknown Verified 07/18/20 17:09 codeine Allergy Unknown Verified 07/18/20 17:09 erythromycin base Allergy Unknown Verified 07/18/20 17:09 hydrocodone Allergy Unknown Verified 07/18/20 17:09 latex Allergy Rash/Hives Verified 07/18/20 17:35 milk Allergy Unknown Verified 07/18/20 17:09 nitrofurantoin Allergy 'SCARRING Verified 07/18/20 17:35 [From Macrobid] IN LUNGS' piperacillin [From Zosyn] Allergy Unknown Verified 07/18/20 17:09 propoxyphene Allergy Unknown Verified 07/18/20 17:09 [From Darvocet-N] tazobactam [From Zosyn] Allergy Unknown Verified 07/18/20 17:09 tetanus immune globulin Allergy Swelling Verified 07/18/20 17:35 venlafaxine [From Effexor] Allergy Unknown Verified 07/18/20 17:09 milk protein Allergy Unknown Uncoded 07/18/20 17:09 Physical Exam Vitals: Vital Signs Temp Pulse Pulse Resp BP BP Pulse Ox 07/19/20 07:00 97.8 F 78 16 126/74 97 07/18/20 23:00 77 18 07/18/20 22:24 98.3 F 77 18 151/78 93 L 07/18/20 21:40 98.2 F 80 16 125/86 96 07/18/20 20:44 97.8 F 77 16 126/62 95 07/18/20 19:00 78 18 123/55 95 07/18/20 18:00 78 18 95 07/18/20 17:58 78 18 95 07/18/20 16:58 83 18 123/55 95 07/18/20 15:58 80 18 95 07/18/20 14:58 80 18 130/59 95 07/18/20 13:52 96.7 F L 77 17 136/64 99 Intake and Output 07/18/20 07/19/20 07/19/20 22:59 06:59 14:59 Other: Voiding Method Bedpan Bedpan Diaper Diaper # Voids 1 1 1 # Bowel Movements 1 Weight 48.534 kg 48.534 kg Gen. appearance, comfortable laying comfortably in bed. BMI is 19.0 Head exam was generally normal. There was no scleral icterus or corneal arcus. Mucous membranes were moist. Neck was supple and without jugular venous distension, thyromegaly, or carotid bruits. Carotids were easily palpable bilaterally. There was no adenopathy.The patient is edentulous Lungs sounds are diminished bilaterally and there is some soreness while palpating the left anterior lateral chest wall pain no obvious deformities. Cardiac exam revealed the PMI to be normally situated and sized. The rhythm was regular and no extrasystoles were noted during several minutes of auscultation. The first and second heart sounds were normal and physiologic splitting of the second heart sound was noted. There were no murmurs, rubs, clicks, or gallops. Abdominal exam revealed normal bowel sounds. The abdomen was soft, non-tender, and without masses, organomegaly, or appreciable enlargement of the abdominal aorta. Examination of the extremities revealed easily palpable radial, femoral and pedal pulses. There was no cyanosis, clubbing or edema. Examination of the skin revealed no evidence of significant rashes, suspicious appearing nevi or other concerning lesions. Neurologically the patient has essential tremors. She has muscle weakness all 4 extremities and this is global weakness. Gait was not assessed on today's evaluation. Results - Laboratory Findings CBC and BMP: 07/19/20 06:08 07/19/20 06:08 PT/INR, D-dimer PT 9.6 sec (9.0-12.0) 07/18/20 14:09 INR 0.9 (<1.2) 07/18/20 14:09 Abnormal lab findings: Abnormal Labs 07/18/20 07/18/20 07/18/20 14:09 14:09 14:09 WBC 13.4 H Neutrophils # 12.0 H Lymphocytes # 0.7 L Sodium 135 L Carbon Dioxide 31 H Glucose 178 H Alkaline Phosphatase 127 H Total Protein Albumin Urine Appearance Cloudy H Urine Nitrite Positive H Ur Leukocyte Esterase Large H Urine WBC 126 H Urine WBC Clumps Few H Urine Bacteria Occasional H Urine Mucus Rare H 07/19/20 07/19/20 06:08 06:08 WBC Neutrophils # Lymphocytes # 0.9 L Sodium Carbon Dioxide Glucose 118 H Alkaline Phosphatase Total Protein 5.8 L Albumin 3.60 L Urine Appearance Urine Nitrite Ur Leukocyte Esterase Urine WBC Urine WBC Clumps Urine Bacteria Urine Mucus - Diagnostic Findings Chest x-ray: image reviewed Assessment and Plan Plan: 1 traumatic left-sided rib fractures secondary to fall. The patient has a nondisplaced fracture involving the third fourth and fifth rib on the left 2 skeletal chest wall pain secondary to above 3 COPD with chronic hypoxic respiratory failure at 2 L per minute nasal cannula 4 history of essential tremors, quite extensive affecting mobility and gait 5 gait dysfunction the patient has had previous bouts of falls and currently utilizing a walker 6 hyperlipidemia 7 acid reflux 8hypothyroidism Plan continue morphine for pain control incentive spirometer Resume medications from home PTOT evaluation We'll continue to follow
[2020-07-19] MEDS: PRIMIDONE 250 MG TAB PO SCH ×2 (14:56→17:19)
[2020-07-19] MEDS: SODIUM CHLORIDE 0.9% 1,000 ML IV SCH (14:57)
--- NOTE | 2020-07-19 15:32 | P.HPIM ---
History of Present Illness 72-year-old [place] female had a fall mechanical fall because of generalized weakness patient has multiple falls recently found to have a fractures on the left side involving third fourth rib patient also has some old fractures in the left side from her previous falls patient denied any syncopal episode. Patient denied any fever chills. X-ray of the humerus did not show any fracture, computed tomography scan of the cervical spine is essentially within normal limits without any dislocation or fractures CT of the head did not show intracranial hemorrhage Review of Systems REVIEW OF SYSTEMS: CONSTITUTIONAL: No fever, no malaise, no fatigue. HEENT: No recent visual problems or hearing problems. Denied any sore throat. CARDIOVASCULAR: No orthopnea, PND, no palpitations, no syncope. PULMONARY: No shortness of breath, no cough, no hemoptysis. GASTROINTESTINAL: No diarrhea, no nausea, no vomiting, no abdominal pain. NEUROLOGICAL: No headaches, no weakness, no numbness. HEMATOLOGICAL: Denies any bleeding or petechiae. GENITOURINARY: Denies any burning micturition, frequency, or urgency. MUSCULOSKELETAL/RHEUMATOLOGICAL: Denies any joint pain, swelling, or any muscle pain. ENDOCRINE: Denies any polyuria or polydipsia. The rest of the 14-point review of systems is negative. Past Medical History Past Medical History: COPD, GERD/Reflux, Hyperlipidemia, Memory Impairment Additional Past Medical History / Comment(s): emphysema, lupus, arthritis, bursitis, ocular hypertension, carpel tunnel, steroid induced diabetes, shingles, incontinence urine and bowel, angio neurotic edema History of Any Multi-Drug Resistant Organisms: None Reported Past Surgical History: Orthopedic Surgery, Tonsillectomy Additional Past Surgical History / Comment(s): left partial hip relacement Past Anesthesia/Blood Transfusion Reactions: No Reported Reaction Past Psychological History: No Psychological Hx Reported Smoking Status: Former smoker Past Alcohol Use History: None Reported Past Drug Use History: None Reported Medications and Allergies Home Medications Medication Instructions Recorded Confirmed Type Acamprosate Calcium [Campral] 333 mg PO BID 07/18/20 07/18/20 History Acetaminophen Tab [Tylenol] 325 mg PO Q6H PRN 07/18/20 07/18/20 History Alendronate Sodium [Fosamax] 70 mg PO TH 07/18/20 07/18/20 History Aspirin EC [Ecotrin Low Dose] 81 mg PO HS 07/18/20 07/18/20 History Azelastine HCl 137 mcg EA NOSTRIL Q12H 07/18/20 07/18/20 History Benzonatate [Tessalon Perles] 100 mg PO TID PRN 07/18/20 07/18/20 History Calcitrate 950mg 950 mg PO HS 07/18/20 07/18/20 History Cetirizine HCl 10 mg PO HS PRN 07/18/20 07/18/20 History Desloratadine 5 mg PO DAILY PRN 07/18/20 07/18/20 History Fexofenadine HCl [Jody Allergy] 180 mg PO DAILY PRN 07/18/20 07/18/20 History Fluticasone/Salmeterol [Advair 1 puff INHALATION RT-BID 07/18/20 07/18/20 Histor y 500-50 Diskus] Ipratropium-Albuterol Nebulize 3 ml INHALATION RT-QID PRN 07/18/20 07/18/20 History [Duoneb 0.5 mg-3 mg/3 ml Soln] Levocetirizine Dihydrochloride 5 mg PO DAILY PRN 07/18/20 07/18/20 History [Xyzal] Levothyroxine Sodium 25 mcg PO DAILY 07/18/20 07/18/20 History Loperamide HCl [Imodium A-D] 4 mg PO TID PRN 07/18/20 07/18/20 History Magnesium 450 - 500 mg PO HS PRN 07/18/20 07/18/20 History Montelukast Sodium [Singulair] 10 mg PO HS 07/18/20 07/18/20 History Multivit-Min/Iron/Folic/Lutein 1 tab PO HS 07/18/20 07/18/20 History [Centrum Silver Women Tablet] [place]-3 Fatty Acids [[place]-3] 1,000 mg PO DAILY 07/18/20 07/18/20 History Omeprazole 20 mg PO HS 07/18/20 07/18/20 History Oxybutynin Chloride [Oxybutynin 10 mg PO HS 07/18/20 07/18/20 History Chloride ER] Primidone [Mysoline] 250 mg PO TID@0900,1300,1700 07/18/20 07/18/20 History Psyllium Husk 100% [Metamucil 6 gm PO TID PRN 07/18/20 07/18/20 History Packet] Simvastatin [Zocor] 40 mg PO HS 07/18/20 07/18/20 History Tiotropium 18 Mcg/Puff [Spiriva] 1 puff INHALATION RT-DAILY 07/18/20 07/18/20 History clonazePAM [KlonoPIN] 0.5 mg PO BID 07/18/20 07/18/20 History guaiFENesin [Mucinex] 600 mg PO BID PRN 07/18/20 07/18/20 History traMADol HCL 50 mg PO BID 07/18/20 07/18/20 History Allergies Allergy/AdvReac Type Severity Reaction Status Date / Time hyoscyamine [From Levbid] Allergy Severe Unknown Verified 07/18/20 17:35 acetaminophen Allergy Unknown Verified 07/18/20 17:09 [From Darvocet-N] alendronate sodium Allergy Rash & Verified 07/18/20 17:35 [From Fosamax] Hives from Generic =brand ok= aspirin Allergy High doses Verified 07/18/20 17:35 causes cramps and stomach tearing banana Allergy Unknown Verified 07/18/20 17:09 codeine Allergy Unknown Verified 07/18/20 17:09 erythromycin base Allergy Unknown Verified 07/18/20 17:09 hydrocodone Allergy Unknown Verified 07/18/20 17:09 latex Allergy Rash/Hives Verified 07/18/20 17:35 milk Allergy Unknown Verified 07/18/20 17:09 nitrofurantoin Allergy 'SCARRING Verified 07/18/20 17:35 [From Macrobid] IN LUNGS' piperacillin [From Zosyn] Allergy Unknown Verified 07/18/20 17:09 propoxyphene Allergy Unknown Verified 07/18/20 17:09 [From Darvocet-N] tazobactam [From Zosyn] Allergy Unknown Verified 07/18/20 17:09 tetanus immune globulin Allergy Swelling Verified 07/18/20 17:35 venlafaxine [From Effexor] Allergy Unknown Verified 07/18/20 17:09 milk protein Allergy Unknown Uncoded 07/18/20 17:09 Physical Exam Vitals: Vital Signs Temp Pulse Pulse Resp BP BP Pulse Ox 07/19/20 07:00 97.8 F 78 16 126/74 97 07/18/20 23:00 77 18 07/18/20 22:24 98.3 F 77 18 151/78 93 L 07/18/20 21:40 98.2 F 80 16 125/86 96 07/18/20 20:44 97.8 F 77 16 126/62 95 07/18/20 19:00 78 18 123/55 95 07/18/20 18:00 78 18 95 07/18/20 17:58 78 18 95 07/18/20 16:58 83 18 123/55 95 07/18/20 15:58 80 18 95 Intake and Output 07/19/20 07/19/20 07/19/20 06:59 14:59 22:59 Intake Total 480 Balance 480 Intake: IV 480 Sodium Chloride 0.9% 1, 480 000 ml @ 60 mls/hr IV . [id number] [facility] Rx#:[id number] Other: Voiding Method Bedpan Bedpan Bedpan Diaper Diaper Diaper # Voids 1 1 # Bowel Movements 1 Weight 48.534 kg PHYSICAL EXAMINATION: GENERAL: The patient is alert and oriented x3, not in any acute distress. Thin built elderly frail female HEENT: Pupils are round and equally reacting to light. EOMI. No scleral icterus. No conjunctival pallor. Normocephalic, atraumatic. No pharyngeal erythema. No thyromegaly. CARDIOVASCULAR: S1 and S2 present. No murmurs, rubs, or gallops. PULMONARY: Chest is clear to auscultation, no wheezing or crackles. ABDOMEN: Soft, nontender, nondistended, normoactive bowel sounds. No palpable organomegaly. MUSCULOSKELETAL: No joint swelling or deformity. EXTREMITIES: No cyanosis, clubbing, or pedal edema. NEUROLOGICAL: Gross neurological examination did not reveal any focal deficits. SKIN: No rashes. Results CBC & Chem 7: 07/19/20 06:08 07/19/20 06:08 Labs: Abnormal Lab Results - Last 24 Hours (Table) 07/18/20 07/19/20 07/19/20 Range/Units 14:09 06:08 06:08 Lymphocytes # 0.9 L (1.0-4.8) k/uL Glucose 118 H (70-110) mg/dL Total Protein 5.8 L (6.2-8.2) g/dL Albumin 3.60 L (3.80-4.90) g/dL Urine Appearance Cloudy H (Clear) Urine Nitrite Positive H (Negative) Ur Leukocyte Esterase Large H (Negative) Urine WBC 126 H (0-5) /hpf Urine WBC Clumps Few H (None) /hpf Urine Bacteria Occasional H (None) /hpf Urine Mucus Rare H (None) /hpf Microbiology - Last 24 Hours (Table) 07/18/20 14:09 Urine Culture - Preliminary Urine,Voided Thrombosis Risk Factor Assmnt - Choose All That Apply Any of the Below Risk Factors Present?: Yes Each Factor Represents 1 point: Abnormal pulmonary function (COPD) Other Risk Factors: No Other congenital or acquired thrombophilia - If yes, enter type in comment: No Thrombosis Risk Factor Assessment Total Risk Factor Score: 1 Thrombosis Risk Factor Assessment Level: Low Risk Assessment and Plan Plan: -Left-sided fractures traumatic: Supportive care will use antiemetics for pain and try to avoid opiates. Incentive spirometry -Chest pain seconded following [place] skeletal nature -COPD without any acute exacerbation at 10-multiple falls PT and OT evaluation -Hyperlipidemia -Gases. Reflux disease -Hypothyroidism For above-mentioned chronic cortical problems patient will be resumed on appropriate home medications
--- NOTE | 2020-07-19 16:28 | P.GSCN ---
History of Present Illness Consult date: 07/19/20 History of present illness: Patient presents after multiple falls from home due to unsteady gait. She reports tripping off floor rugs and then falling from the bathtub. She has restless leg syndrome for which she takes magnesiums. She has multiple rib fractures from her falls. CHEST: Tender along chest from rib fractures STUDIES: Reviewed PLAN: 1. Patient being seen from pulmonary. 2. Recommend incentive spirometer 3. May need home evaluation for fall risks. 4. No acute trauma surgical needs at this time. Past Medical History Past Medical History: COPD, GERD/Reflux, Hyperlipidemia, Memory Impairment Additional Past Medical History / Comment(s): emphysema, lupus, arthritis, bursitis, ocular hypertension, carpel tunnel, steroid induced diabetes, shingles, incontinence urine and bowel, angio neurotic edema History of Any Multi-Drug Resistant Organisms: None Reported Past Surgical History: Orthopedic Surgery, Tonsillectomy Additional Past Surgical History / Comment(s): left partial hip relacement Past Anesthesia/Blood Transfusion Reactions: No Reported Reaction Past Psychological History: No Psychological Hx Reported Smoking Status: Former smoker Past Alcohol Use History: None Reported Past Drug Use History: None Reported Medications and Allergies Home Medications Medication Instructions Recorded Confirmed Type Acamprosate Calcium [Campral] 333 mg PO BID 07/18/20 07/18/20 History Acetaminophen Tab [Tylenol] 325 mg PO Q6H PRN 07/18/20 07/18/20 History Alendronate Sodium [Fosamax] 70 mg PO TH 07/18/20 07/18/20 History Aspirin EC [Ecotrin Low Dose] 81 mg PO HS 07/18/20 07/18/20 History Azelastine HCl 137 mcg EA NOSTRIL Q12H 07/18/20 07/18/20 History Benzonatate [Tessalon Perles] 100 mg PO TID PRN 07/18/20 07/18/20 History Calcitrate 950mg 950 mg PO HS 07/18/20 07/18/20 History Cetirizine HCl 10 mg PO HS PRN 07/18/20 07/18/20 History Desloratadine 5 mg PO DAILY PRN 07/18/20 07/18/20 History Fexofenadine HCl [Jody Allergy] 180 mg PO DAILY PRN 07/18/20 07/18/20 History Fluticasone/Salmeterol [Advair 1 puff INHALATION RT-BID 07/18/20 07/18/20 History 500-50 Diskus] Ipratropium-Albuterol Nebulize 3 ml INHALATION RT-QID PRN 07/18/20 07/18/20 History [Duoneb 0.5 mg-3 mg/3 ml Soln] Levocetirizine Dihydrochloride 5 mg PO DAILY PRN 07/18/20 07/18/20 History [Xyzal] Levothyroxine Sodium 25 mcg PO DAILY 07/18/20 07/18/20 History Loperamide HCl [Imodium A-D] 4 mg PO TID PRN 07/18/20 07/18/20 History Magnesium 450 - 500 mg PO HS PRN 07/18/20 07/18/20 History Montelukast Sodium [Singulair] 10 mg PO HS 07/18/20 07/18/20 History Multivit-Min/Iron/Folic/Lutein 1 tab PO HS 07/18/20 07/18/20 History [Centrum Silver Women Tablet] [place]-3 Fatty Acids [[place]-3] 1,000 mg PO DAILY 07/18/20 07/18/20 History Omeprazole 20 mg PO HS 07/18/20 07/18/20 History Oxybutynin Chloride [Oxybutynin 10 mg PO HS 07/18/20 07/18/20 History Chloride ER] Primidone [Mysoline] 250 mg PO TID@0900,1300,1700 07/18/20 07/18/20 History Psyllium Husk 100% [Metamucil 6 gm PO TID PRN 07/18/20 07/18/20 History Packet] Simvastatin [Zocor] 40 mg PO HS 07/18/20 07/18/20 History Tiotropium 18 Mcg/Puff [Spiriva] 1 puff INHALATION RT-DAILY 07/18/20 07/18/20 History clonazePAM [KlonoPIN] 0.5 mg PO BID 07/18/20 07/18/20 History guaiFENesin [Mucinex] 600 mg PO BID PRN 07/18/20 07/18/20 History traMADol HCL 50 mg PO BID 07/18/20 07/18/20 History Allergies Allergy/AdvReac Type Severity Reaction Status Date / Time hyoscyamine [From Levbid] Allergy Severe Unknown Verified 07/18/20 17:35 acetaminophen Allergy Unknown Verified 07/18/20 17:09 [From Darvocet-N] alendronate sodium Allergy Rash & Verified 07/18/20 17:35 [From Fosamax] Hives from Generic =brand ok= aspirin Allergy High doses Verified 07/18/20 17:35 causes cramps and stomach tearing banana Allergy Unknown Verified 07/18/20 17:09 codeine Allergy Unknown Verified 07/18/20 17:09 erythromycin base Allergy Unknown Verified 07/18/20 17:09 hydrocodone Allergy Unknown Verified 07/18/20 17:09 latex Allergy Rash/Hives Verified 07/18/20 17:35 milk Allergy Unknown Verified 07/18/20 17:09 nitrofurantoin Allergy 'SCARRING Verified 07/18/20 17:35 [From Macrobid] IN LUNGS' piperacillin [From Zosyn] Allergy Unknown Verified 07/18/20 17:09 propoxyphene Allergy Unknown Verified 07/18/20 17:09 [From Darvocet-N] tazobactam [From Zosyn] Allergy Unknown Verified 07/18/20 17:09 tetanus immune globulin Allergy Swelling Verified 07/18/20 17:35 venlafaxine [From Effexor] Allergy Unknown Verified 07/18/20 17:09 milk protein Allergy Unknown Uncoded 07/18/20 17:09 Surgical - Exam Vital Signs Temp Pulse Resp BP Pulse Ox 96.7 F L 77 17 136/64 99 07/18/20 13:52 07/18/20 13:52 07/18/20 13:52 07/18/20 13:52 07/18/20 13:52 Results - Labs 07/19/20 06:08 07/19/20 06:08 Abnormal Lab Results - Last 24 Hours (Table) 07/18/20 07/19/20 07/19/20 Range/Units 14:09 06:08 06:08 Lymphocytes # 0.9 L (1.0-4.8) k/uL Glucose 118 H (70-110) mg/dL Total Protein 5.8 L (6.2-8.2) g/dL Albumin 3.60 L (3.80-4.90) g/dL Urine Appearance Cloudy H (Clear) Urine Nitrite Positive H (Negative) Ur Leukocyte Esterase Large H (Negative) Urine WBC 126 H (0-5) /hpf Urine WBC Clumps Few H (None) /hpf Urine Bacteria Occasional H (None) /hpf Urine Mucus Rare H (None) /hpf Microbiology - Last 24 Hours (Table) 07/18/20 14:09 Urine Culture - Preliminary Urine,Voided Diabetes panel 07/19/20 Range/Units 06:08 Sodium 136 (135-145) mmol/L Potassium 4.6 (3.5-5.5) mmol/L Chloride 102 (96-109) mmol/L Carbon Dioxide 29.0 (21.6-31.8) mmol/L BUN 9.0 (9.0-27.0) mg/dL Creatinine 0.6 (0.6-1.5) mg/dL Glucose 118 H (70-110) mg/dL Calcium 8.7 (8.7-10.3) mg/dL AST 30 (13-35) U/L ALT 15 (8-44) U/L Alkaline Phosphatase 125 (41-126) U/L Total Protein 5.8 L (6.2-8.2) g/dL Albumin 3.60 L (3.80-4.90) g/dL Calcium panel 07/19/20 Range/Units 06:08 Calcium 8.7 (8.7-10.3) mg/dL Albumin 3.60 L (3.80-4.90) g/dL Pituitary panel 07/19/20 Range/Units 06:08 Sodium 136 (135-145) mmol/L Potassium 4.6 (3.5-5.5) mmol/L Chloride 102 (96-109) mmol/L Carbon Dioxide 29.0 (21.6-31.8) mmol/L BUN 9.0 (9.0-27.0) mg/dL Creatinine 0.6 (0.6-1.5) mg/dL Glucose 118 H (70-110) mg/dL Calcium 8.7 (8.7-10.3) mg/dL Adrenal panel 07/19/20 Range/Units 06:08 Sodium 136 (135-145) mmol/L Potassium 4.6 (3.5-5.5) mmol/L Chloride 102 (96-109) mmol/L Carbon Dioxide 29.0 (21.6-31.8) mmol/L BUN 9.0 (9.0-27.0) mg/dL Creatinine 0.6 (0.6-1.5) mg/dL Glucose 118 H (70-110) mg/dL Calcium 8.7 (8.7-10.3) mg/dL Total Bilirubin 0.2 (0.2-1.2) mg/dL AST 30 (13-35) U/L ALT 15 (8-44) U/L Alkaline Phosphatase 125 (41-126) U/L Total Protein 5.8 L (6.2-8.2) g/dL Albumin 3.60 L (3.80-4.90) g/dL
[2020-07-19] MEDS: MAGNESIUM OXIDE 400 MG TAB PO SCH (17:19)
[2020-07-19] MEDS: CALCIUM CARBONATE 500 MG CHEWABLE PO PRN (18:16)
[2020-07-19] MEDS: KETOROLAC 15 MG/ML 1 ML VIAL IVP PRN (18:25)
[2020-07-19] MEDS ORDERED: SYMBICORT 160-4.5 MCG INHALER INHALATION SCH (20:00)
[2020-07-19] MEDS ORDERED: clonazePAM 0.5 MG TAB PO SCH (21:00)
[2020-07-19] MEDS: ASPIRIN 81 MG PO SCH (22:05)
[2020-07-19] MEDS: MULTIVITAMINS, THERA 1 EACH TAB PO SCH (22:06)
[2020-07-19] MEDS: ACAMPROSATE CALCIUM 333 MG TABLET.DR PO SCH (22:06)
[2020-07-19] MEDS: PANTOPRAZOLE 40 MG TABLET PO SCH (22:06)
[2020-07-19] MEDS: OXYBUTYNIN 10 MG TAB.ER.24 PO SCH (22:06)
[2020-07-19] MEDS: CALCITRATE 950 MG PO SCH (22:07)
[2020-07-20] MEDS: KETOROLAC 15 MG/ML 1 ML VIAL IVP PRN ×3 (03:20→16:21)
[2020-07-20] MEDS: LEVOTHYROXINE 25 MCG TAB PO SCH (03:21)
[2020-07-20] MEDS: SODIUM CHLORIDE 0.9% 1,000 ML IV SCH ×2 (05:13→21:20)
[2020-07-20] MEDS: traMADol 50 MG TAB PO PRN ×3 (05:50→16:21)
[2020-07-20] MEDS: MAGNESIUM OXIDE 400 MG TAB PO SCH (07:06)
[2020-07-20] MEDS: ACAMPROSATE CALCIUM 333 MG TABLET.DR PO SCH ×2 (07:07→21:19)
[2020-07-20] MEDS: PRIMIDONE 250 MG TAB PO SCH ×3 (07:07→16:21)
--- NOTE | 2020-07-20 12:09 | P.PN ---
Subjective 72-year-old pleasant female had a fall mechanical fall because of generalized weakness patient has multiple falls recently found to have a fractures on the left side involving third fourth rib patient also has some old fractures in the left side from her previous falls patient denied any syncopal episode. Patient denied any fever chills. X-ray of the humerus did not show any fracture, computed tomography scan of the cervical spine is essentially within normal limits without any dislocation or fractures CT of the head did not show intracranial hemorrhage. 05/19/2020 Patient pain is fairly well-controlled with the Toradol. Still complaining of pain in the chest area Constitutional: Denied any fatigue denied any fever. Cardio vascular: talbot mentioned in HPI Gastrointestinal denied any nausea vomiting Pulmonary: Denied any shortness of breath cough Neurologic denied any new focal deficits All inpatient medications were reviewed and appropriate changes in these medications as dictated in the interval history and assessment and plan. Objective - Vital Signs Vital signs: Vital Signs Temp 97.8 F 07/20/20 07:00 Pulse 82 07/20/20 07:00 Resp 18 07/20/20 07:30 BP 128/56 07/20/20 07:00 Pulse Ox 95 07/20/20 07:44 Intake & Output 07/19/20 07/20/20 07/20/20 18:59 06:59 18:59 Intake Total 480 Output Total 525 Balance 480 -525 Weight 48.534 kg Intake: IV 480 Sodium Chloride 0.9% 1, 480 000 ml @ 60 mls/hr IV . [id number] [facility] Rx#:[id number] Output: Urine 525 Other: Voiding Method Bedpan Diaper Diaper Diaper # Voids 1 - Exam PHYSICAL EXAMINATION: GENERAL: The patient is alert and oriented x3, not in any acute distress. Thin built elderly frail female HEENT: Pupils are round and equally reacting to light. EOMI. No scleral icterus. No conjunctival pallor. Normocephalic, atraumatic. No pharyngeal erythema. No thyromegaly. CARDIOVASCULAR: S1 and S2 present. No murmurs, rubs, or gallops. PULMONARY: Chest is clear to auscultation, no wheezing or crackles. ABDOMEN: Soft, nontender, nondistended, normoactive bowel sounds. No palpable organomegaly. MUSCULOSKELETAL: No joint swelling or deformity. EXTREMITIES: No cyanosis, clubbing, or pedal edema. NEUROLOGICAL: Gross neurological examination did not reveal any focal deficits. SKIN: No rashes. - Labs CBC & Chem 7: 07/19/20 06:08 07/19/20 06:08 Labs: Microbiology - Last 24 Hours (Table) 07/18/20 14:09 Urine Culture - Preliminary Urine,Voided Gram Neg Bacilli Assessment and Plan Plan: -Left-sided fractures traumatic: Supportive care will use antiemetics for pain and try to avoid opiates. Incentive spirometry -Chest pain seconded following [place] skeletal nature -COPD without any acute exacerbation at 10-multiple falls PT and OT evaluation -Hyperlipidemia -Gases. Reflux disease -Hypothyroidism For above-mentioned chronic cortical problems patient will be resumed on appropriate home medications
--- NOTE | 2020-07-20 12:24 | P.PN ---
Subjective Progress Note Date: 07/20/20 Principal diagnosis: Trauma with left-sided rib fractures secondary to fall 74-year-old female patient, known history of COPD with chronic hypoxic respiratory failure at 2 L per minute nasal cannula, known history of chronic essential tremors and dementia. The patient has had multiple falls. While utilizing the restroom yesterday, the patient had another bout of fall and she landed on her left chest area. She did not have any head trauma. No loss of consciousness. This is related to her tremors in overall generalized weakness and debility. The patient was on the floor for approximately an hour and she waited for her to come and pick it up as the patient's was not at home at time of the fall. She has had a chest x-ray that showed nondisplaced left-sided drip fractures involving third fourth and fifth rib. She has had previous falls and she is recovered from a nondisplaced left-sided rib fracture and the sacral fracture related to a previous fall. She recently received Bactrim for a underlying UTI. No altered mentation. No headache. No neck stiffness. No swelling lower extremities. No swelling in the legs. No other complaints otherwise for now. X-ray of the humerus was done and showed no evidence of any fracture. CAT scan of the cervical spine and the head showed no evidence of any acute fracture or dislocation of the cervical spine and the patient and I have any acute intracranial hemorrhage or mass effect or midline shift. She is currently utilizing incentive spirometer. She continues to be on 2 L of oxygen by nasal cannula. She is on morphine sulfate 2 mg every 4 hours when necessary for pain control. She is also on aspirin 81 mg by mouth daily. The patient is seen today 07/20/2020 in follow-up on the regular medical floor. He is currently resting more comfortably in bed. Awake and alert in no acute distress. Maintaining good O2 saturations in the mid 90s on 2 L/m per nasal cannula. No worsening shortness of breath, cough or congestion. She is pulling approximately 750 ML's on the incentive spirometer. She is afebrile. Hemodynamically stable. Pain is better controlled today. She remains on Symbi april, DuoNeb inhalations, Tessalon Perles, Urine culture is positive for gram- negative bacilli. Currently on ceftriaxone. Objective - Vital Signs Vital signs: Vital Signs Temp 97.8 F 07/20/20 07:00 Pulse 82 07/20/20 07:00 Resp 18 07/20/20 07:30 BP 128/56 07/20/20 07:00 Pulse Ox 95 07/20/20 07:44 Intake & Output 07/19/20 07/20/20 07/20/20 18:59 06:59 18:59 Intake Total 480 Output Total 525 Balance 480 -525 Weight 48.534 kg Intake: IV 480 Sodium Chloride 0.9% 1, 480 000 ml @ 60 mls/hr IV . [id number] [facility] Rx#:[id number] Output: Urine 525 Other: Voiding Method Bedpan Diaper Diaper Diaper # Voids 1 - Exam Gen. appearance, alert, pleasant 74-year-old female patient, comfortable laying comfortably in bed. O2 saturations in the mid 90s on 2 L/m per nasal cannula BMI is 19.0 Head exam was generally normal. There was no scleral icterus or corneal arcus. Mucous membranes were moist. Neck was supple and without jugular venous distension, thyromegaly, or carotid bruits. Carotids were easily palpable bilaterally. There was no adenopathy.The patient is edentulous Lungs sounds are diminished bilaterally and there is some soreness while palpating the left anterior lateral chest wall pain no obvious deformities. Cardiac exam revealed the PMI to be normally situated and sized. The rhythm was regular and no extrasystoles were noted during several minutes of auscultation. The first and second heart sounds were normal and physiologic splitting of the second heart sound was noted. There were no murmurs, rubs, clicks, or gallops. Abdominal exam revealed normal bowel sounds. The abdomen was soft, non-tender, and without masses, organomegaly, or appreciable enlargement of the abdominal aorta. Examination of the extremities revealed easily palpable radial, femoral and pedal pulses. There was no cyanosis, clubbing or edema. Examination of the skin revealed no evidence of significant rashes, suspicious appearing nevi or other concerning lesions. Neurologically the patient has essential tremors. She has muscle weakness all 4 extremities and this is global weakness. Gait was not assessed on today's evaluation. - Labs CBC & Chem 7: 07/19/20 06:08 07/19/20 06:08 Labs: Microbiology - Last 24 Hours (Table) 07/18/20 14:09 Urine Culture - Preliminary Urine,Voided Gram Neg Bacilli Assessment and Plan Assessment: 1 traumatic left-sided rib fractures secondary to fall. The patient has a nondisplaced fracture involving the third fourth and fifth rib on the left 2 skeletal chest wall pain secondary to above 3 COPD with chronic hypoxic respiratory failure at 2 L per minute nasal cannula 4 history of essential tremors, quite extensive affecting mobility and gait 5 gait dysfunction the patient has had previous bouts of falls and currently utilizing a walker 6 hyperlipidemia 7 acid reflux 8 hypothyroidism Plan The patient was seen and evaluated by Dr. Jama She is improved today compared to yesterday Encouraged increased use of the incentive spirometer Repeat chest x-ray in the a.m. Increase her activity as tolerated Titrate down the FiO2 as tolerated We'll continue to follow I, the cosigning physician, performed a history & physical examination of the patient. Lungs sounds are clear, diminished. Maintaining good O2 saturations in the 90s on 2 L/m nasal cannula. I discussed the assessment and plan of care with my nurse practitioner, Gladys Ramos. I attest to the above note as dictated by her.
--- NOTE | 2020-07-20 13:19 | P.PN ---
Subjective Progress Note Date: 07/20/20 Patient reports some improvement of left chest wall pain. She has intentional and resting tremors of the hand. She reports seeing a specialist/neurologist for her condition that helps but she has global pain. She is resting in bed. CHEST: Left chest wall pain NEURO: Intentional and resting tremors of the hands with ulnar deviation PLAN: 1. May benefit from neurology consultation for movement disorder and adjustment of medications 2. Pain management for ribs 3. Incentive spirometer 4. PT/OT assessment 5. Trauma surgery signing off. Objective - Vital Signs Vital signs: Vital Signs Temp 97.8 F 07/20/20 07:00 Pulse 82 07/20/20 07:00 Resp 18 07/20/20 07:30 BP 128/56 07/20/20 07:00 Pulse Ox 95 07/20/20 07:44 Intake & Output 07/19/20 07/20/20 07/20/20 18:59 06:59 18:59 Intake Total 480 Output Total 525 Balance 480 -525 Weight 48.534 kg Intake: IV 480 Sodium Chloride 0.9% 1, 480 000 ml @ 60 mls/hr IV . [id number] [facility] Rx#:[id number] Output: Urine 525 Other: Voiding Method Bedpan Diaper Diaper Diaper # Voids 1 - Labs CBC & Chem 7: 07/19/20 06:08 07/19/20 06:08 Labs: Microbiology - Last 24 Hours (Table) 07/18/20 14:09 Urine Culture - Preliminary Urine,Voided Gram Neg Bacilli
[2020-07-20] MEDS: ASPIRIN 81 MG PO SCH (21:19)
[2020-07-20] MEDS: PANTOPRAZOLE 40 MG TABLET PO SCH (21:19)
[2020-07-20] MEDS: MULTIVITAMINS, THERA 1 EACH TAB PO SCH (21:19)
[2020-07-20] MEDS: CALCITRATE 950 MG PO SCH (21:19)
[2020-07-20] MEDS: OXYBUTYNIN 10 MG TAB.ER.24 PO SCH (21:33)
[2020-07-21] MEDS: traMADol 50 MG TAB PO PRN ×4 (00:38→18:08)
[2020-07-21] MEDS: KETOROLAC 15 MG/ML 1 ML VIAL IVP PRN ×3 (00:38→11:11)
[2020-07-21 05:00] LABS: HCT 36.6 % (34.0-46.0); HGB 11.6 gm/dL (11.4-16.0); MCH 29.9 pg (25.0-35.0); MCHC 31.7 g/dL (31.0-37.0); MCV 94.3 fL (80.0-100.0); Mean Platelet Volume 7.3; Platelet Count 260 k/uL (150-450); RBC 3.88 m/uL (3.80-5.40); RDW 14.6 % (11.5-15.5); WBC 8.4 k/uL (3.8-10.6)
[2020-07-21] MEDS: LEVOTHYROXINE 25 MCG TAB PO SCH (05:58)
[2020-07-21] MEDS: PRIMIDONE 250 MG TAB PO SCH ×3 (08:39→17:30)
[2020-07-21] MEDS: ACAMPROSATE CALCIUM 333 MG TABLET.DR PO SCH (08:39)
[2020-07-21] MEDS: IPRATROPIUM-ALBUTEROL 3 ML NEB INHALATION PRN ×3 (09:07→16:50)
[2020-07-21 10:13] LABS: African American GFR (CKD) 120.6 (60.0-200.0); Anion Gap 4.6 mmol/L (4.00-12.00); Calcium 8.1 mg/dL (8.7-10.3); Carbon Dioxide 30.4 mmol/L (21.6-31.8); Non-African American GFR(CKD) 104.1 (60.0-200.0); Potassium 4.3 mmol/L (3.5-5.5)
--- NOTE | 2020-07-21 12:11 | P.PN ---
Subjective Progress Note Date: 07/21/20 Principal diagnosis: Trauma, with left-sided rib fracture secondary to fall 74-year-old female patient, known history of COPD with chronic hypoxic respiratory failure at 2 L per minute nasal cannula, known history of chronic essential tremors and dementia. The patient has had multiple falls. While utilizing the restroom yesterday, the patient had another bout of fall and she landed on her left chest area. She did not have any head trauma. No loss of consciousness. This is related to her tremors in overall generalized weakness and debility. The patient was on the floor for approximately an hour and she waited for her to come and pick it up as the patient's was not at home at time of the fall. She has had a chest x-ray that showed nondisplaced left-sided drip fractures involving third fourth and fifth rib. She has had previous falls and she is recovered from a nondisplaced left-sided rib fracture and the sacral fracture related to a previous fall. She recently received Bactrim for a underlying UTI. No altered mentation. No headache. No neck stiffness. No swelling lower extremities. No swelling in the legs. No other complaints otherwise for now. X-ray of the humerus was done and showed no evidence of any fracture. CAT scan of the cervical spine and the head showed no evidence of any acute fracture or dislocation of the cervical spine and the patient and I have any acute intracranial hemorrhage or mass effect or midline shift. She is currently utilizing incentive spirometer. She continues to be on 2 L of oxygen by nasal cannula. She is on morphine sulfate 2 mg every 4 hours when necessary for pain control. She is also on aspirin 81 mg by mouth daily. The patient is seen today 07/20/2020 in follow-up on the regular medical floor. He is currently resting more comfortably in bed. Awake and alert in no acute distress. Maintaining good O2 saturations in the mid 90s on 2 L/m per nasal cannula. No worsening shortness of breath, cough or congestion. She is pulling approximately 750 ML's on the incentive spirometer. She is afebrile. Hemodynamically stable. Pain is better controlled today. She remains on Symbi april, DuoNeb inhalations, Tessalon Perles, Urine culture is positive for gram- negative bacilli. Currently on ceftriaxone. On 07/21/2020 patient seen in follow-up on the regular medical floor. Doing, she sitting up in the chair, she denies any acute distress, she is currently on 2 L of oxygen and her pulse oximetry is between 94-97%, she's been afebrile, she is working on incentive spirometer, no new chest x-ray today, no worsening dyspnea. Her pain seems to be reasonably controlled. Today's labs have been reviewed, white blood cell is 8.4, hemoglobin is 11.6, lites are within normal limits, and BUN was 6, creatinine 0.4. Her urinalysis chest the presence of urinary tract infection, and urine culture was positive for Klebsiella pneumonia, patient is currently on ceftriaxone. She has been afebrile. Lung sounds are clear. Objective - Vital Signs Vital signs: Vital Signs Temp 98.3 F 07/21/20 07:00 Pulse 88 07/21/20 09:21 Resp 18 07/21/20 08:00 BP 145/55 07/21/20 07:00 Pulse Ox 94 L 07/21/20 07:00 Intake & Output 07/20/20 07/21/20 07/21/20 18:59 06:59 18:59 Intake Total 540 Output Total 650 600 Balance -110 -600 Intake: Oral 540 Output: Urine 650 600 Other: Voiding Method Diaper Diaper Diaper # Bowel Movements 1 - Exam GENERAL EXAM: Alert, very pleasant, 74-year-old frail looking white female, si tting up in the recliner, on 2 L of oxygen and the pulse ox 94% comfortable in no apparent distress. HEAD: Normocephalic/atraumatic. EYES: Normal reaction of pupils, equal size. Conjunctiva pink, sclera white. NOSE: Clear with pink turbinates. THROAT: No erythema or exudates. NECK: No masses, no JVD, no thyroid enlargement, no adenopathy. CHEST: No chest wall deformity. Symmetrical expansion. LUNGS: Equal air entry with no crackles, wheeze, rhonchi or dullness. CVS: Regular rate and rhythm, normal S1 and S2, no gallops, no murmurs, no rubs ABDOMEN: Soft, nontender. No hepatosplenomegaly, normal bowel sounds, no guarding or rigidity. EXTREMITIES: No clubbing, no edema, no cyanosis, 2+ pulses and upper and lower extremities. MUSCULOSKELETAL: Muscle strength and tone normal. SPINE: No scoliosis or deformity SKIN: No rashes CENTRAL NERVOUS SYSTEM: Alert and oriented -3. No focal deficits, tone is normal in all 4 extremities. PSYCHIATRIC: Alert and oriented -3. Appropriate affect. Intact judgment and insight. - Labs CBC & Chem 7: 07/21/20 04:26 07/21/20 04:26 Labs: Abnormal Lab Results - Last 24 Hours (Table) 07/21/20 Range/Units 04:26 BUN 6.0 L (9.0-27.0) mg/dL Creatinine 0.4 L (0.6-1.5) mg/dL Calcium 8.1 L (8.7-10.3) mg/dL Microbiology - Last 24 Hours (Table) 07/18/20 14:09 Urine Culture - Final Urine,Voided Klebsiella pneumoniae Assessment and Plan Plan: Assessment: 1 traumatic left-sided rib fractures secondary to fall. The patient has a nondisplaced fracture involving the third fourth and fifth rib on the left 2 skeletal chest wall pain secondary to above 3 COPD with chronic hypoxic respiratory failure at 2 L per minute nasal cannula 4 history of essential tremors, quite extensive affecting mobility and gait 5 gait dysfunction the patient has had previous bouts of falls and currently utilizing a walker 6 hyperlipidemia 7 acid reflux 8 hypothyroidism 9 Klebsiella pneumonia urinary tract infection, currently on Rocephin Plan: Patient is clinically stable, maintain pain control, encourage deep breathing and coughing, incentive spirometry use, no acute events overnight. Repeat chest x-ray is pending, increase activity as tolerated, patient has been started on antibiotics for evidence of urinary tract infection. No worsening dyspnea, she is working on her incentive spirometer. We'll continue to follow I performed a history & physical examination of the patient and discussed their management with my nurse practitioner, Marylin Goodrich. I reviewed the nurse pr actitioner's note and agree with the documented findings and plan of care. Lung sounds are positive for diminished breath sounds. The findings and the impression was discussed with the patient. I attest to the documentation by the nurse practitioner. Time with Patient: Less than 30
--- NOTE | 2020-07-21 13:37 | P.DS ---
Providers Date of admission: 07/18/20 18:07 Attending physician: Mary Morataya Consults: 07/20/20 13:20 Consult Physician Routine Consulting Provider: Morro Rodgers Consult Reason/Comments: Movement disorder, frequent falls, trauma Do you want consulting provider notified?: Already Contacted Primary care physician: Henrietta Hyatt [facility] Course: 72-year-old pleasant female had a fall mechanical fall because of generalized weakness patient has multiple falls recently found to have a fractures on the left side involving third fourth rib patient also has some old fractures in the left side from her previous falls patient denied any syncopal episode. Patient denied any fever chills. X-ray of the humerus did not show any fracture, computed tomography scan of the cervical spine is essentially within normal limits without any dislocation or fractures CT of the head did not show intracranial hemorrhage. 07/20/2020 Patient pain is fairly well-controlled with the Toradol. Still complaining of p ain in the chest area. 07/21/2020 Patient is admitted for left-sided rib fractures after a mechanical fall patient has new rib fractures of third fourth fifth and seventhribs which is new and 8 and ninth rib fractures which were old. Patient is clinically doing well will be discharged to subacute for subacute rehabilitation. Patient is also being treated for UTI has Klebsiella pneumoniae in the urine. This organism was pansensitive patient will be discharged on 3 more days of Ceftin.she does have a significant tremor which is an essential tremor which is bit worse lately patient will be started on a trial of probable all. Patient says she takes Klonopin for that. PHYSICAL EXAMINATION: GENERAL: The patient is alert and oriented x3, not in any acute distress. Thin built elderly frail female HEENT: Pupils are round and equally reacting to light. EOMI. No scleral icterus. No conjunctival pallor. Normocephalic, atraumatic. No pharyngeal erythema. No thyromegaly. CARDIOVASCULAR: S1 and S2 present. No murmurs, rubs, or gallops. PULMONARY: Chest is clear to auscultation, no wheezing or crackles. ABDOMEN: Soft, nontender, nondistended, normoactive bowel sounds. No palpable organomegaly. MUSCULOSKELETAL: No joint swelling or deformity. EXTREMITIES: No cyanosis, clubbing, or pedal edema. NEUROLOGICAL: Gross neurological examination did not reveal any focal deficits. SKIN: No rashes. Assessment and Plan Plan: -Left-sided fractures traumatic: Supportive care will use antiemetics for pain. Incentive spirometry Because of her tremor I cannot do tramadol patient can use and this aids if needed but for now patient will be discharged on Tylenol and [place]. -benign essential tremor: Beta tenzin will be prescribed -Chest pain seconded following [place] skeletal nature -COPD without any acute exacerbation at 10-multiple falls PT and OT evaluation, patient will be discharged to subacute rehabilitation -Hyperlipidemia -Gases. Reflux disease -Hypothyroidism Patient Condition at Discharge: Stable Plan - Discharge Summary Discharge Rx Participant: Yes New Discharge Prescriptions: New Propranolol [Inderal] 10 mg PO TID #1 tab clonazePAM [KlonoPIN] 0.5 mg PO BID PRN #10 tab PRN Reason: Anxiety HYDROcodone/APAP 7.5-325MG [[place] 7.5-325] 1 tab PO Q4H PRN #20 tab PRN Reason: Pain Cefuroxime Axetil [Ceftin] 500 mg PO BID 3 Days #6 tab Continue guaiFENesin [Mucinex] 600 mg PO BID PRN PRN Reason: Congestion Desloratadine 5 mg PO DAILY PRN PRN Reason: Allergy Symptoms Levothyroxine Sodium 25 mcg PO DAILY Wald[place]-3 Fatty Acids [[place]-3] 1,000 mg PO DAILY Simvastatin [Zocor] 40 mg PO HS Montelukast Sodium [Singulair] 10 mg PO HS Primidone [Mysoline] 250 mg PO TID@0900,1300,1700 Oxybutynin Chloride [Oxybutynin Chloride ER] 10 mg PO HS Cetirizine HCl 10 mg PO HS PRN PRN Reason: Allergy Symptoms Omeprazole 20 mg PO HS Magnesium 450 - 500 mg PO HS PRN PRN Reason: RESTLESS LEGS Alendronate Sodium [Fosamax] 70 mg PO TH Multivit-Min/Iron/Folic/Lutein [Centrum Silver Women Tablet] 1 tab PO HS Calcitrate 950mg 950 mg PO HS Fluticasone/Salmeterol [Advair 500-50 Diskus] 1 puff INHALATION RT-BID Aspirin EC [Ecotrin Low Dose] 81 mg PO HS Acetaminophen Tab [Tylenol] 325 mg PO Q6H PRN PRN Reason: Pain Azelastine HCl 137 mcg EA NOSTRIL Q12H Acamprosate Calcium [Campral] 333 mg PO BID Ipratropium-Albuterol Nebulize [Duoneb 0.5 mg-3 mg/3 ml Soln] 3 ml INHALATION RT-QID PRN PRN Reason: Shortness Of Breath Loperamide HCl [Imodium A-D] 4 mg PO TID PRN PRN Reason: Diarrhea Benzonatate [Tessalon Perles] 100 mg PO TID PRN PRN Reason: Cough Psyllium Husk 100% [Metamucil Packet] 6 gm PO TID PRN PRN Reason: Constipation Discontinued Fexofenadine HCl [Jody Allergy] 180 mg PO DAILY PRN PRN Reason: Allergy Symptoms Levocetirizine Dihydrochloride [Xyzal] 5 mg PO DAILY PRN PRN Reason: Allergy Symptoms Tiotropium 18 Mcg/Puff [Spiriva] 1 puff INHALATION RT-DAILY clonazePAM [KlonoPIN] 0.5 mg PO BID traMADol HCL 50 mg PO BID Discharge Medication List Acamprosate Calcium [Campral] 333 mg PO BID 07/18/20 [History] Acetaminophen Tab [Tylenol] 325 mg PO Q6H PRN 07/18/20 [History] Alendronate Sodium [Fosamax] 70 mg PO TH 07/18/20 [History] Aspirin EC [Ecotrin Low Dose] 81 mg PO HS 07/18/20 [History] Azelastine HCl 137 mcg EA NOSTRIL Q12H 07/18/20 [History] Benzonatate [Tessalon Perles] 100 mg PO TID PRN 07/18/20 [History] Calcitrate 950mg 950 mg PO HS 07/18/20 [History] Cetirizine HCl 10 mg PO HS PRN 07/18/20 [History] Desloratadine 5 mg PO DAILY PRN 07/18/20 [History] Fluticasone/Salmeterol [Advair 500-50 Diskus] 1 puff INHALATION RT-BID 07/18/20 [History] Ipratropium-Albuterol Nebulize [Duoneb 0.5 mg-3 mg/3 ml Soln] 3 ml INHALATION RT-QID PRN 07/18/20 [History] Levothyroxine Sodium 25 mcg PO DAILY 07/18/20 [History] Loperamide HCl [Imodium A-D] 4 mg PO TID PRN 07/18/20 [History] Magnesium 450 - 500 mg PO HS PRN 07/18/20 [History] Montelukast Sodium [Singulair] 10 mg PO HS 07/18/20 [History] Multivit-Min/Iron/Folic/Lutein [Centrum Silver Women Tablet] 1 tab PO HS [History] Waldron-3 Fatty Acids [[place]ron-3] 1,000 mg PO DAILY 07/18/20 [History] Omeprazole 20 mg PO HS 07/18/20 [History] Oxybutynin Chloride [Oxybutynin Chloride ER] 10 mg PO HS 07/18/20 [History] Primidone [Mysoline] 250 mg PO TID@0900,1300,1700 07/18/20 [History] Psyllium Husk 100% [Metamucil Packet] 6 gm PO TID PRN 07/18/20 [History] Simvastatin [Zocor] 40 mg PO HS 07/18/20 [History] guaiFENesin [Mucinex] 600 mg PO BID PRN 07/18/20 [History] Cefuroxime Axetil [Ceftin] 500 mg PO BID 3 Days #6 tab 07/21/20 [Rx] HYDROcodone/APAP 7.5-325MG [[place] 7.5-325] 1 tab PO Q4H PRN #20 tab 07/21/20 [ Rx] Propranolol [Inderal] 10 mg PO TID #1 tab 07/21/20 [Rx] clonazePAM [KlonoPIN] 0.5 mg PO BID PRN #10 tab 07/21/20 [Rx] Follow up Appointment(s)/Referral(s): Henrietta Hyatt MD [Primary Care Provider] - 3 Days (Please call and make appointment) Discharge Disposition: TRANSFER TO SNF/ECF
[2020-07-21 14:09] VITALS: BP 133/69; RESP 16; TEMP 98.1
--- NOTE | 2020-07-21 15:06 | P.CNNES ---
History of Present Illness Consult date: 07/21/20 Requesting physician: Ruth Platt Reason for Consult: Movement disorder, frequent falls, trauma History of Present Illness: Patient is a 74-year-old female came to the hospital on 07/18/2020 came to the hospital for multiple falls at home due to unsteady gait. She reported tripping off floor rugs and that falling from the bathtub. The balance issue has been going on for last 3 weeks. Prior to that, her states that her walking was "okay". Patient denies starting any new medication although she did take some antibiotic in the last 3 weeks, the names she does not remember. Patient underwent CT head showed no acute intracranial hemorrhage, mass effect or midline shift. There is no acute fracture or dislocation evident in the cervical spine. X-ray of the ribs showed displaced third rib fracture laterally, fourth rib fracture and fifth rib fracture. Seventh rib laterally also shows a fracture with angulation. Eighth and ninth rib fractures are again noted. Patient's blood test shows CBC 13.4 hemoglobin 12.8, platelets 252 PT/PTT normal. Chem-20 normal. UA showed WBC 126, few WBC clumps and occasional bacteria. Patient was noted to have intentional and resting tremors of the hand. Neurological consultation was recommended. Patient takes tramadol 50 mg twice a day, clonazepam 0.5 mg twice a day, oxybutynin 10 mg at bedtime, primidone 250 mg 3 times a day and Campral 330 mg twice a day. Patient stated that she has history of benign familial tremor since age 28. Over the years it has steadily gotten worse. Patient used to see Dr. Loya, but then she started seeing Dr. [place] Walker. Review of Systems Patient complains of tremors, some shortness of breath, chest pain or fracture. Denies any abdominal pain, nausea vomiting or diarrhea. Past Medical History Past Medical History: COPD, GERD/Reflux, Hyperlipidemia, Memory Impairment Additional Past Medical History / Comment(s): emphysema, lupus, arthritis, bursitis, ocular hypertension, carpel tunnel, steroid induced diabetes, shingles, incontinence urine and bowel, angio neurotic edema History of Any Multi-Drug Resistant Organisms: None Reported Past Surgical History: Orthopedic Surgery, Tonsillectomy Additional Past Surgical History / Comment(s): left partial hip relacement Past Anesthesia/Blood Transfusion Reactions: No Reported Reaction Past Psychological History: No Psychological Hx Reported Smoking Status: Former smoker Past Alcohol Use History: None Reported Past Drug Use History: None Reported Medications and Allergies Home Medications Medication Instructions Recorded Confirmed Type Acamprosate Calcium [Campral] 333 mg PO BID 07/18/20 07/18/20 History Acetaminophen Tab [Tylenol] 325 mg PO Q6H PRN 07/18/20 07/18/20 History Alendronate Sodium [Fosamax] 70 mg PO TH 07/18/20 07/18/20 History Aspirin EC [Ecotrin Low Dose] 81 mg PO HS 07/18/20 07/18/20 History Azelastine HCl 137 mcg EA NOSTRIL Q12H 07/18/20 07/18/20 History Benzonatate [Tessalon Perles] 100 mg PO TID PRN 07/18/20 07/18/20 History Calcitrate 950mg 950 mg PO HS 07/18/20 07/18/20 History Cetirizine HCl 10 mg PO HS PRN 07/18/20 07/18/20 History Desloratadine 5 mg PO DAILY PRN 07/18/20 07/18/20 History Fluticasone/Salmeterol [Advair 1 puff INHALATION RT-BID 07/18/20 07/18/20 History 500-50 Diskus] Ipratropium-Albuterol Nebulize 3 ml INHALATION RT-QID PRN 07/18/20 07/18/20 History [Duoneb 0.5 mg-3 mg/3 ml Soln] Levothyroxine Sodium 25 mcg PO DAILY 07/18/20 07/18/20 History Loperamide HCl [Imodium A-D] 4 mg PO TID PRN 07/18/20 07/18/20 History Magnesium 450 - 500 mg PO HS PRN 07/18/20 07/18/20 History Montelukast Sodium [Singulair] 10 mg PO HS 07/18/20 07/18/20 History Multivit-Min/Iron/Folic/Lutein 1 tab PO HS 07/18/20 07/18/20 History [Centrum Silver Women Tablet] Wayne-3 Fatty Acids [[place]-3] 1,000 mg PO DAILY 07/18/20 07/18/20 History Omeprazole 20 mg PO HS 07/18/20 07/18/20 History Oxybutynin Chloride [Oxybutynin 10 mg PO HS 07/18/20 07/18/20 History Chloride ER] Primidone [Mysoline] 250 mg PO TID@0900,1300,1700 07/18/20 07/18/20 History Psyllium Husk 100% [Metamucil 6 gm PO TID PRN 07/18/20 07/18/20 History Packet] Simvastatin [Zocor] 40 mg PO HS 07/18/20 07/18/20 History guaiFENesin [Mucinex] 600 mg PO BID PRN 07/18/20 07/18/20 History Cefuroxime Axetil [Ceftin] 500 mg PO BID 3 Days #6 tab 07/21/20 Rx HYDROcodone/APAP 7.5-325MG [[place] 1 tab PO Q4H PRN #20 tab 07/21/20 Rx 7.5-325] Ipratropium/Albuterol Sulfate 1 puff INHALATION RT-QID PRN 07/21/20 07/21/20 History [Combivent Respimat Inhaler] Propranolol [Inderal] 10 mg PO TID #60 tab 07/21/20 Rx clonazePAM [KlonoPIN] 0.5 mg PO BID PRN #10 tab 07/21/20 Rx Allergies Allergy/AdvReac Type Severity Reaction Status Date / Time hyoscyamine [From Levbid] Allergy Severe Unknown Verified 07/18/20 17:35 acetaminophen Allergy Unknown Verified 07/18/20 17:09 [From Darvocet-N] alendronate sodium Allergy Rash & Verified 07/18/20 17:35 [From Fosamax] Hives from Generic =brand ok= aspirin Allergy High doses Verified 07/18/20 17:35 causes cramps and stomach tearing banana Allergy Unknown Verified 07/18/20 17:09 codeine Allergy Unknown Verified 07/18/20 17:09 erythromycin base Allergy Unknown Verified 07/18/20 17:09 hydrocodone Allergy Unknown Verified 07/18/20 17:09 latex Allergy Rash/Hives Verified 07/18/20 17:35 milk Allergy Unknown Verified 07/18/20 17:09 nitrofurantoin Allergy 'SCARRING Verified 07/18/20 17:35 [From Macrobid] IN LUNGS' piperacillin [From Zosyn] Allergy Unknown Verified 07/18/20 17:09 propoxyphene Allergy Unknown Verified 07/18/20 17:09 [From Darvocet-N] tazobactam [From Zosyn] Allergy Unknown Verified 07/18/20 17:09 tetanus immune globulin Allergy Swelling Verified 07/18/20 17:35 venlafaxine [From Effexor] Allergy Unknown Verified 07/18/20 17:09 milk protein Allergy Unknown Uncoded 07/18/20 17:09 Physical Examination - Vital Signs Vital Signs: Vital Signs Temp Pulse Pulse Resp BP Pulse Ox 07/21/20 12:07 88 07/21/20 09:21 88 07/21/20 09:11 84 07/21/20 08:00 81 18 07/21/20 07:00 98.3 F 81 18 145/55 94 L 07/21/20 03:41 98.8 F 84 17 147/88 97 07/21/20 03:08 18 07/20/20 23:30 18 07/20/20 19:24 98.9 F 85 18 120/54 92 L 07/20/20 19:00 18 07/20/20 15:00 98.2 F 78 16 117/62 95 Intake and Output 07/20/20 07/21/20 07/21/20 22:59 06:59 14:59 Output Total 400 200 Balance -400 -200 Output: Urine 400 200 Other: Voiding Method Diaper Diaper On examination patient is an elderly female very pleasant in no acute distress. Patient is alert awake oriented to time place and person. Speech and language functions are normal. Attention and concentration fund of knowledge is adequate. On cranial nerve examination pupils are round and reacting to light, visual tomlinson are full on confrontation, extraocular muscles are intact without nystagmus. Face is symmetric, tongue protrudes the midline. Palatal elevation and sensation normal. Hearing and shoulder shrug normal. On muscle strength testing there is no pronator drift and the strength is normal in the arms and legs. Patient has moderate postural and intention tremors. No tremors at rest. Tone is normal bilaterally. Patient made spiral, which had mild to moderate course shakiness. Handwriting is mildly shaky. There is no ataxia for f [id number] testing. Bulk of muscles is normal. Gait deferred. No obvious bruit, S1 and S2 audible. Peripheral pulses present, abdomen soft nontender. Results - Laboratory Findings CBC and BMP: 07/21/20 04:26 07/21/20 04:26 Abnormal Lab Findings: Abnormal Labs 07/18/20 07/18/20 07/18/20 14:09 14:09 14:09 WBC 13.4 H Neutrophils # 12.0 H Lymphocytes # 0.7 L Sodium 135 L Carbon Dioxide 31 H BUN Creatinine Glucose 178 H Calcium Alkaline Phosphatase 127 H Total Protein Albumin Urine Appearance Cloudy H Urine Nitrite Positive H Ur Leukocyte Esterase Large H Urine WBC 126 H Urine WBC Clumps Few H Urine Bacteria Occasional H Urine Mucus Rare H 07/19/20 07/19/20 07/21/20 06:08 06:08 04:26 WBC Neutrophils # Lymphocytes # 0.9 L Sodium Carbon Dioxide BUN 6.0 L Creatinine 0.4 L Glucose 118 H Calcium 8.1 L Alkaline Phosphatase Total Protein 5.8 L Albumin 3.60 L Urine Appearance Urine Nitrite Ur Leukocyte Esterase Urine WBC Urine WBC Clumps Urine Bacteria Urine Mucus Assessment and Plan Assessment: * Benign familial tremor * Recurrent falls, gait imbalance for last 3 weeks, unclear cause, possible medication side effect. Patient on fairly high-dose of primidone 250 mg 3 times a day, but she has been on this dose for last several years. Uncertain if the antibiotics she took recently may have affected primidone level. * Fractured ribs due to falls. Plan: * We will check primidone and phenobarbital levels. * We will also check B12, folate, TSH, free T4, B6, MMA, A1c to rule out other causes of gait imbalance and tremors. * Patient was recommended to reduce primidone to 250 mg twice a day, instead of 3 times a day, as high levels of primidone can affect balance, especially at her age and her body size. * The above pending lab results could be followed up with her primary physician. * Patient was recommended to follow up with her movement disorder specialist Dr. Ch[place] Walker in 2-4 weeks. Addendum 08/23/2020: Patient's blood tests showed vitamin B12 771, B6 6, folate 18.7, TSH 2.360, methylmalonic acid is normal 0.27 hemoglobin A1c 5.3 Primidone level was normal 10.5 (4-12), but phenobarbital level was elevated at 46.8 (15-40). Called patient's home, and talked to her . Patient was getting breathing treatment. Informed her to stay on primidone 250 mg twice a day. Her says that she is doing well with this dose.
[2020-07-21 17:03] VITALS: PULSE 78
[2020-07-21] MEDS: MAGNESIUM OXIDE 400 MG TAB PO SCH (17:30)
[2020-07-21 19:54] LABS: Hemoglobin A1C 5.3 % (4.0-6.0)
[2020-07-21 20:05] LABS: Folate, Serum 18.7 ng/mL
== END 2020-07-21 18:47 | disposition home health service (06) | DRG 184 ==
LOC: EC 13:20 → 4SSUR 18:07
PROVIDERS: ADMIT Internal Medicine; ATTEND Internal Medicine
DX: S22.42XA Multiple fractures of ribs, left side, initial encounter for closed fracture (principal); N39.0 Urinary tract infection, site not specified; J96.11 Chronic respiratory failure with hypoxia; J43.9 Emphysema, unspecified; K21.9 Gastro-esophageal reflux disease without esophagitis; E78.5 Hyperlipidemia, unspecified; M19.90 Unspecified osteoarthritis, unspecified site; G25.81 Restless legs syndrome; R07.89 Other chest pain; F03.90 Unspecified dementia, unspecified severity, without behavioral disturbance, psychotic disturbance, mood disturbance, and anxiety; R26.89 Other abnormalities of gait and mobility; E03.9 Hypothyroidism, unspecified; G25.0 Essential tremor; B96.1 Klebsiella pneumoniae [K. pneumoniae] as the cause of diseases classified elsewhere; T38.0X5A Adverse effect of glucocorticoids and synthetic analogues, initial encounter; E09.9 Drug or chemical induced diabetes mellitus without complications; W01.0XXA Fall on same level from slipping, tripping and stumbling without subsequent striking against object, initial encounter; R29.6 Repeated falls; Z79.83 Long term (current) use of bisphosphonates; Z91.81 History of falling; Z90.710 Acquired absence of both cervix and uterus; Z87.891 Personal history of nicotine dependence; Z79.82 Long term (current) use of aspirin; Z79.899 Other long term (current) drug therapy; Z79.890 Hormone replacement therapy; Z88.6 Allergy status to analgesic agent; Z88.1 Allergy status to other antibiotic agents; Z91.011 Allergy to milk products; Z88.5 Allergy status to narcotic agent; Z88.0 Allergy status to penicillin; Z88.7 Allergy status to serum and vaccine; Z88.8 Allergy status to other drugs, medicaments and biological substances; Z91.018 Allergy to other foods; Z90.89 Acquired absence of other organs; Z98.890 Other specified postprocedural states; Z99.81 Dependence on supplemental oxygen; Y93.9 Activity, unspecified; Y92.009 Unspecified place in unspecified non-institutional (private) residence as the place of occurrence of the external cause
CPT/HCPCS: 36415; 70450; 72125; 80048; 80053; 80184; 80188; 81001; 82607; 82746; 83036; 83921; 84207; 84443; 85025; 85027; 85610; 85730; 87077; 87086; 87186; 93005; 94640; 94760; 96365; 96375; 96376; 99285